=== PATIENT | female | born 1935 | race Caucasian/White ===

== ENCOUNTER 2021-08-18 19:43 | Inpatient (IN) | payer MEDICARE, SELFPAY ==
--- NOTE | ~2021-08-18 | XR_ITS ---
EXAMINATION: XR chest 1V portable Exam Date/Time: 08/18/2021 20:32 CDT HISTORY: fall x today, dementia, non smoker Comparison: 09/29/2016. RESULT: Lines, tubes, and devices: None. Lungs and pleura: Senescent changes. Cardiomediastinal silhouette: Stable cardiomediastinal silhouette. Other: No acute osseous or upper abdominal finding. IMPRESSION: No acute cardiopulmonary process. Reviewed, dictated and finalized at location K.
--- NOTE | ~2021-08-18 | XR_ITS ---
EXAMINATION: XR abdomen/kub 1V DATE: 08/27/2021 07:53 INDICATION: Abdominal pain. TECHNIQUE: A supine view of the abdomen was obtained. COMPARISON: Abdomen radiograph 08/22/21, CT abdomen and pelvis 07/10/2013 FINDINGS: There are no dilated loops of bowel. There is a large volume of stool in the colon. There i s a bipolar left hip hemiarthroplasty. IMPRESSION: 1. Nonobstructive bowel gas pattern. Reviewed, dictated and finalized at location A.
--- NOTE | ~2021-08-18 | XR_ITS ---
XR abdomen/kub 1V DATE: 08/22/2021 12:52 INDICATION: New onset of vomiting TECHNIQUE: Portable supine AP view on 08/22/2021 at 1243 hours COMPARISON: 07/13/2013 portable abdomen FINDINGS: Moderately prominent amount fecal material in the rectosigmoid area. No bowel obstruction i s evident. The psoas shadows are intact. No visceromegaly is detected. Left hip replacement. Osteopenia. Mild scoliosis. Degenerative changes of the thoracic and lumbar spi ne. IMPRESSION: No evidence of bowel obstruction Reviewed, dictated and finalized at Location A. Reviewed, dictated and finalized at location A.
--- NOTE | ~2021-08-18 | XR_ITS ---
XR surgery orthopedic DATE: 08/19/2021 19:27 INDICATION: Intraoperative evaluation TECHNIQUE: 2 AP views of left hip COMPARISON: None FINDINGS: There is expected subcutaneous emphysema intraoperatively. There is resection of the left f emoral neck and head. The trocar in the proximal left femur. Diffuse osteopenia. IMPRESSION: Intraoperative examination during process of the left hip replacement Reviewed, dictated and finalized at Location A. Reviewed, dictated and finalized at location A. IMPRESSION: Intraoperative examination during process of the left hip replaceme nt
--- NOTE | ~2021-08-18 | XR_ITS ---
EXAM: XR ankle LT min 3V DATE: 08/18/2021 20:29 HISTORY: fall, pain to left ankle . COMPARISON: None available. FINDINGS: Some osseous detail is obscured by overlying cloth/blanket material laterally. Decreased m ineralization. No fracture or dislocation. No lytic or blastic lesion. Joint spaces are maintained. A chilles and plantar into separately. No erosion or periosteal change. Soft tissues within normal limi ts. IMPRESSION: No acute osseous finding in the left ankle. Reviewed, dictated and finalized at location K.
--- NOTE | ~2021-08-18 | XR_ITS ---
EXAMINATION: XR chest 1V portable DATE: 08/27/2021 07:53 INDICATION: Atelectasis. TECHNIQUE: A single frontal view of the chest was obtained. COMPARISON: Chest single view 08/22/2021 FINDINGS: There is no pneumonia, pleural effusion, or pneumothorax. The heart size is normal. IMPRESSION: 1. No acute cardiopulmonary disease. Reviewed, dictated and finalized at location A.
--- NOTE | ~2021-08-18 | XR_ITS ---
XR hip LT min 2V DATE: 08/19/2021 19:27 INDICATION: Left bipolar hip replacement TECHNIQUE: AP and crosstable lateral views of left hip COMPARISON: None FINDINGS: Status post left femoral head and neck resection and placement of bipolar hip prosthesis wh ich appears normally positioned in the acetabulum. There is expected postoperative subcutaneous emphysema of the left hip and thigh. Surgical drain is p resent at the lateral aspect of the left hip. Diffuse osteopenia. IMPRESSION: Resection of left femoral head and neck and bipolar hip replacement Reviewed, dictated and finalized at location A.
--- NOTE | ~2021-08-18 | CT_ITS ---
EXAMINATION: CT brain wo con DATE: 08/18/2021 20:31 INDICATION: fall . TECHNIQUE: Computed tomography (CT) of the head was performed without intravenous contrast. The mA wa s adjusted according to patient size. Iterative reconstruction technique was employed. The dose-lengt h product was 605.33 mGy-cm. COMPARISON: 02/17/2014. FINDINGS: No acute intracranial hemorrhage or extra-axial fluid collection. No hydrocephalus, mass, or herniation. No acute ischemic infarct. Unremarkable dural venous sinus attenuation. No acute osseous abnormality. Mild left frontal soft tissue swelling. Left sphenoid air-fluid level, otherwise the aerated spaces are clear. Moderate atrophy. Severe chronic white matter change. Atherosclerotic intracranial calcifications. Bi lateral lens replacements. IMPRESSION: No acute intracranial process. Possible left sphenoid sinusitis. Reviewed, dictated and finalized at location K.
--- NOTE | ~2021-08-18 | XR_ITS ---
EXAM: XR hip LT min 3V w AP pelvis DATE: 08/18/2021 20:33 HISTORY: fall x today, pain to left hip . COMPARISON: None available. FINDINGS: Decreased mineralization. Left femoral neck fracture with minimal superior displacement. N o lytic or blastic lesion. Degenerative changes in the lumbar spine, pubic symphysis, and bilateral h ips. No erosion or periosteal change. Soft tissues within normal limits. IMPRESSION: Minimally displaced left femoral neck fracture. Reviewed, dictated and finalized at location K.
--- NOTE | ~2021-08-18 | XR_ITS ---
XR chest 1V portable DATE: 08/22/2021 02:10 INDICATION: Possible aspiration TECHNIQUE: Portable upright AP chest on 08/22/2021 at 0204 hours COMPARISON: 08/18/2021 portable AP views at 2032 hours FINDINGS: Mild infiltrate or atelectasis in the lower lung zones. No pleural effusion or pulmonary va scular congestion or pneumothorax. Heart size is within normal limits. Osteopenia. Osteoarthritic change at the glenohumeral joints. IMPRESSION: Mild infiltrate or atelectasis at the lung bases Reviewed, dictated and finalized at location A.
--- NOTE | ~2021-08-18 | CT_ITS ---
EXAMINATION: CT cervical spine wo con DATE: 08/18/2021 20:31 INDICATION: fall TECHNIQUE: Computed tomography (CT) of the cervical spine was performed without intravenous contrast. Automated exposure control and iterative reconstruction technique were employed. The dose-length pro duct was 189.41 mGy-cm. COMPARISON: None FINDINGS: Vertebral Body Alignment: Intact. 2 mm anterolisthesis of C3 on C4. 1 mm retrolisthesis of C4 on C5. Craniocervical and atlantoaxial alignment: Moderate degenerative change with extensive pannus formati on. Alignment intact. Osseous structures/fracture: No evidence of a lytic or blastic process in the visualized spine. No e vidence of acute fracture. Cervical soft tissues: The paraspinal soft tissues planes are maintained. Degenerative changes: Multilevel severe degenerative disc disease in the lower lumbar spine. Multilev el severe bilateral neural foraminal narrowing. Severe central canal narrowing at C6-7. IMPRESSION: No acute fracture or traumatic malalignment in the cervical spine. Reviewed, dictated and finalized at location K.
[2021-08-18 19:45] VITALS: BP 145/71; PULSE 58; RESP 18; TEMP 37; O2SAT 94
--- NOTE | 2021-08-18 20:09 | ED.FALL ---
HPI - Fall General Chief Complaint: Fall Stated Complaint: left groin pain s/p fall Time Seen by Provider: 08/18/21 19:46 History of Present Illness HPI Narrative: 85-year-old female presents after [facility] at [facility], she had come in her left foot tingled up and lost her balance and fell, she was caught by the aide and lowered to the floor, and had no trauma to her head or neck or chest, she is endorsing some pain in her left ankle and left hip. Denies any chest pain, difficulty breathing, loss of consciousness, nausea or vomiting. Related Data Allergies Allergy/AdvReac Type Severity Reaction Status Date / Time morphine AdvReac Unknown agressive Verified 05/13/21 10:57 Review of Systems Review of Systems: CONST: No malaise HEENT: Denies head trauma C/V: No chest pain RESP: No difficulty breathing GI: No abdominal pain BACK: No back pain M/S: Left hip pain SKIN: No rash. NEURO: [No headache or focal numbness or weakness] PSYCH: [No depression] [facility] Past Medical History Medical History (Updated 08/18/21 @ 21:42 by Juliet Flores MD) Hypercalcemia Wellness examination Family History Family History Father Family history of lung cancer Sibling Hypertension Family history of malignant melanoma Mother Family history of malignant neoplasm of stomach Social History Social History Smoking status: Never smoker Second hand tobacco smoke exposure: No Alcohol intake: never Substance use: never Substance use type: does not use Additional living arrangements comments: alf Gender identity (if verbalized by the patient): Female Sexual Orientation (if Verbalized by the Patient): Straight or Heterosexual Exam Narrative: EXAMINATION OF ORGAN SYSTEMS/BODY AREAS: Constitutional: Vital signs per nursing GENERAL:[No acute distress, non-toxic appearing.] HEAD: Normal with no signs of head trauma. EYES: EOMI, conjunctiva normal LUNGS: Nonlabored breathing. HEART: [Regular rate and rhythm], no chest wall tenderness ABD: [Soft], [nontender to palpation] EXT: Tenderness palpation of the left hip, left ankle; neurovascularly intact SKIN: [No rashes or lesions.] NEURO: [Alert. No gross focal sensory deficits.] PSYCH: Normal affect Course Vital Signs Vital signs: Vital Signs Temperature 98.6 F 08/18/21 19:45 Pulse Rate 58 L 08/18/21 19:45 Respiratory Rate 18 08/18/21 19:45 Blood Pressure 145/71 H 08/18/21 19:45 Pulse Oximetry 94 08/18/21 19:45 Oxygen Delivery Room Air 08/18/21 19:45 Temperature 98.6 F 08/18/21 19:45 Pulse Rate 62 08/18/21 21:24 Respiratory Rate 18 08/18/21 21:24 Blood Pressure 109/91 H 08/18/21 21:24 Pulse Oximetry 97 08/18/21 21:24 Oxygen Delivery Room Air 08/18/21 19:45 MDM - Fall MDM Narrative Medical decision making narrative: 85-year-old female presenting with fall and left hip pain, vital stable, exam shows tenderness of the left ankle and hip and no pain anywhere else, she is neurovascularly intact, given her age I will obtain scans of her head, C-spine, chest, pelvis, and ankle on the left. This is notable for left femoral neck fracture, case discussed with orthopedics who requested admission to the hospitalist, case discussed with hospitalist who accepted patient. Findings discussed with patient and her daughter. Lab Data Result diagrams: 08/18/21 20:51 08/18/21 21:22 Labs: Lab Results 08/18/21 08/18/21 08/18/21 Range/Units 20:51 20:51 20:51 WBC 6.5 (4.5-10.0) K/mm3 RBC 3.44 L (4.2-5.4) M/mm3 Hgb 11.2 L (12.0-15.0) g/dL Hct 34.9 L (37.0-47.0) % MCV 101.5 H (80-100) fl MCH 32.6 (26-34) pg MCHC 32.1 (32-36) g/dl RDW 14.0 (11.5-14.5) % Plt Count 240 (150-375) k/mm3 MPV 9.5 (7.4-10.4) fl Immature Gran % (Auto) 0.5 (0-0.5) % Neut %
[2021-08-18 20:36] VITALS: BP 162/75; PULSE 62; RESP 18; O2SAT 98
--- NOTE | 2021-08-18 20:42 | ECG_ITS ---
Measurements Intervals [place] Rate: 55 P: 82 IN: 211 QRS: 61 QRSD: 97 T: 49 QT: 431 QTc: 413 Interpretive Statements SINUS BRADYCARDIA WITH FIRST DEGREE AV BLOCK NO PREVIOUS ECG AVAILABLE FOR COMPARISON Electronically Signed On 08-19-2021 11:14:43 CDT by Anam Rodgers MD
[2021-08-18 20:58] LABS: Basophils Absolute Auto 0.1 K/mm3 (0.0-0.1); Basophils Percent Auto 0.8 % (0.2-1.2); Eosinophils Absolute Auto 0.1 K/mm3 (0-0.3); Eosinophils Percent Auto 1.7 % (0-4.4); Hematocrit 34.9 % (37.0-47.0); Hemoglobin 11.2 g/dL (12.0-15.0); Immature Granulocyte Absolute 0.03 K/mm3 (0.00-0.031); Immature Granulocyte Percent A 0.5 % (0-0.5); Lymphocytes Absolute Auto 1.32 K/mm3 (0.9-3.2); Lymphocytes Percent Auto 20.4 % (18.3-44.2); Mean Corpuscular HGB Conc 32.1 g/dl (32-36); Mean Corpuscular Hemoglobin 32.6 pg (26-34); Mean Corpuscular Volume 101.5 fl (80-100); Mean Platelet Volume 9.5 fl (7.4-10.4); Monocytes Absolute Auto 0.7 K/mm3 (0.1-0.6); Monocytes Percent Auto 10.2 % (2.6-8.5); Neutrophils Absolute Auto 4.3 K/mm3 (1.3-6.7); Neutrophils Percent Auto 66.4 % (45.5-73.1); Platelet Count Result 240 k/mm3 (150-375); Red Blood Count 3.44 M/mm3 (4.2-5.4); White Blood Count 6.5 K/mm3 (4.5-10.0)
[2021-08-18 21:08] LABS: INR 1.1; Prothrombin Time 13.7 Seconds (11.1-14.7)
[2021-08-18 21:09] LABS: Partial Thromboplastin Time 30.3 SECONDS (22.3-36.8)
--- NOTE | 2021-08-18 21:13 | PM.IMHP ---
H&P: HPI History of Present Illness Date/Time: 08/18/21 21:13 Chief Complaint: Fall Narrative: This is an 85-year-old female with past medical history significant for hypertension, diastolic heart failure, GERD, Alzheimer's dementia, dyslipidemia, patient resides at assisted living facility memory care unit. She was brought to the emergency room for evaluation after she suffered a mechanical fall. Patient is unable to give any history due to her advanced dementia she is oriented times once. Preliminary workup was significant for left femur fracture. Patient is been admitted for further evaluation, management and treatment. Review of Systems Review of Systems: ROS unobtainable: Yes unobtainable due to mental status (Alzheimer's dementia) COUNT INCLUDES THE [facility] Past Medical History Medical History (Updated 08/18/21 @ 21:42 by Juliet Flores MD) Hypercalcemia Wellness examination Family History Family History Father Family history of lung cancer Sibling Hypertension Family history of malignant melanoma Mother Family history of malignant neoplasm of stomach Social History Social History Smoking status: Never smoker Second hand tobacco smoke exposure: No Alcohol intake: never Substance use: never Substance use type: does not use Additional living arrangements comments: nursing home Gender identity (if verbalized by the patient): Female Sexual Orientation (if Verbalized by the Patient): Straight or Heterosexual Spiritual care concerns: No Meds Home Medications and Allergies Home Medications Medication Instructions Recorded Confirmed Type aspirin 81 mg tablet,delayed 81 mg PO DAILY #90 tabs 05/13/21 08/18/21 Rx release famotidine 20 mg tablet 20 mg PO BID #180 tabs 05/13/21 08/18/21 Rx lisinopril 20 mg tablet 20 mg PO DAILY #90 tabs 05/13/21 08/18/21 Rx loratadine 10 mg tablet (Claritin) 10 mg PO DAILY PRN allergy 05/13/21 08/18/21 Rx symptoms #30 tabs memantine 28 mg capsule 28 mg PO DAILY #90 ea 05/13/21 08/18/21 Rx sprinkle,extended release 24hr rosuvastatin 10 mg tablet 10 mg PO DAILY #90 tabs 05/13/21 08/18/21 Rx citalopram 10 mg tablet 10 mg PO QHS #90 tabs 07/29/21 08/18/21 Rx acetaminophen 500 mg tablet 1,000 mg PO Q6H PRN Pain (Scale 08/18/21 08/18/21 History Score 1-3) rivastigmine tartrate 3 mg capsule 3 mg PO BID 08/18/21 08/18/21 History Allergies Allergy/AdvReac Type Severity Reaction Status Date / Time morphine AdvReac Unknown agressive Verified 05/13/21 10:57 Vital Signs Vital Signs - 24 hr 08/18/21 19:45 08/18/21 20:36 Temperature 98.6 F Pulse Rate 58 L 62 Respiratory Rate 18 18 Blood Pressure 145/71 H 162/75 H Pulse Oximetry 94 98 Oxygen Delivery Room Air Exam Narrative: Patient is laying in a stretcher Const: General: comfortable, no acute distress, well developed, alert and awake Nutritional Appearance: average body habitus Orientation/consciousness: oriented to person HENMT: Head: normal to inspection, normocephalic and atraumatic Ears: hearing grossly impaired bilaterally Face and sinus: normal facial exam Eyes: General: appearance normal, both eyes and all related structures Alignment and Position: alignment normal Pupils: Equal, round and reactive pupils present EOM: EOMs intact bilaterally Neck: Neck: full ROM, no lymphadenopathy and no JVD Thyroid: thyroid normal Lymphatic: no lymphadenopathy noted Resp: Effort & Inspection: normal respiratory effort and able to speak in complete sentences Auscultation: clear to auscultation bilaterally Cardio: Jugular venous distension: no JVD Rate: regular rate Rhythm: regular rhythm Heart sounds: S1 normal heart sound present and S2 normal heart sound present GI: GI Palp: Yes Soft to palpation and Yes No hepatosplenomegaly present : General: Yes deferred Skin: Rashes: no rashes Wounds:
[2021-08-18 21:24] VITALS: BP 109/91; PULSE 62; RESP 18; O2SAT 97
[2021-08-18 21:48] LABS: Alanine Aminotransferase 19 U/L (6-35); Albumin Level 4.3 g/dL (3.5-5.1); Alkaline Phosphatase 52 U/L (38-126); Anion Gap 4 mmol/L (8-16); Aspartate Amino Transferase 33 U/L (14-36); Bilirubin,Total 0.5 mg/dL (0.2-1.3); Blood Urea Nitrogen 23 mg/dL (7-17); Calcium 9.6 mg/dL (8.4-10.2); Carbon Dioxide 26 mmol/L (22-30); Chloride 104 mmol/L (98-107); Estimated CRCL calculation 40 ml/min; Estimated Glomerular Filt Rate 59; Glucose 105 mg/dL (65-110); Potassium 4.4 mmol/L (3.4-5.0); Sodium 134 mmol/L (137-145)
--- NOTE | 2021-08-18 22:35 | ADMGEN ---
This patient, Elise Cash, was admitted to Medical Room 245-. Patient/family oriented to hospital policies and general routines including ID bracelet, bed and alarms, visiting hours, pain management, procedures, bathroom and other care routines, personal items, smoking policy, room service/diet, and visiting hours. Information on how to activate the Rapid Response Team has been discussed. Patient/Family are encouraged to report perceived risks to care and to ask questions if they do not understand what they are told or what they should do.
[2021-08-18 22:53] VITALS: BP 109/86; PULSE 62; RESP 18; O2SAT 95
[2021-08-18 23:08] VITALS: BP 185/90; PULSE 68; RESP 18; TEMP 37.1; O2SAT 97; BMI 25.7
[2021-08-18] MEDS: HYDROmorphone HCL INJ (*CRX) 1 MG/ML SYR IV PUSH (23:30)
[2021-08-18] MEDS: HALOPERIDOL LACTATE 5 MG/ML VIAL IM (23:34)
[2021-08-18 23:56] VITALS: BMI 25.7
[2021-08-19] VITALS (11 sets, daily range): BP systolic 148–190; BP diastolic 60–114; PULSE 70–103; RESP 12–22; TEMP 35.9–37.7; O2SAT 90–100
[2021-08-19] MEDS: HYDROmorphone HCL INJ (*CRX) 1 MG/ML SYR 0.5 MG IV PUSH ×2 (07:29→11:02)
--- NOTE | 2021-08-19 07:30 | PM.CNOR ---
Assessment and Plan Assessment and plan (1) Closed fracture of neck of left femur: Code(s): S72.002A - Fracture of unspecified part of neck of left femur, initial encounter for closed fracture Status: Acute Assessment and Plan: patient is a an 85-year-old female who reportedly twisted on her left leg sustaining a displaced left femoral neck fracture last evening. She was brought to the [facility] Emergency Room where she was noted to have a displaced left femoral neck fracture. She resides at the [facility] care unit in [facility]. She was living at home independently until 2013 and her dementia became severe enough that she required chronic inpatient care. Her daughter was present could be a history. Her past medical history is significant for bleeding ulcer in 2013 approximally she had severe delirium associated with recovery from that. She normally ambulates without any gait aid. She has no history of heart or lung disease. She was admitted with anemia which is likely chronic and not related to the fracture. We will check another CBC this morning. She has mild elevation of BUN 23 creatinine 0.9 creatinine clearance 40 GFR 59. The remainder of her Chem panel is unremarkable except for mild decrease in sodium at 1:34 a.m.. Her list of medications is reviewed. She does take a baby aspirin daily and Pepcid twice daily chronically, citalopram, lisinopril, loratadine, memantine and rosuvastatin. Dr. Burris is her primary care physician. on examination today she is in moderate distress crying out pain. She periodically tries to move her left leg at the hip and seems be the cause of her episodes of severe pain causing her to cry out. I tried to position the leg with a pillow under the knee for some support. She has 2+ dorsalis pedis and posterior tibial artery pulses. There is no lower extremity edema the skin looks fine. She is hard of hearing but her daughter was able to communicate with her little bit with her hearing aids. She does respond in answered yes or no appropriately to her daughter but it is clear that she does have advanced dementia and and inability to process instruction or information. Impression: Patient has a displaced left transcervical femoral neck fracture. I have discussed options with her daughter. her daughter does not wish to treat her mother with non operative treatment as she would have no quality of life. the best Surgical treatment would be a partial hip replacement. Unless her bone quality seemed excellent, a cemented stem would be recommended as she will not have the cognitive situational awareness to be protected weight-bearing with a Press-Fit ingrowth type stem. I have discussed risks of surgery with her daughter, who is her power of county attorney, in detail including risk of mortality and she understands. Her daughter was x-ray and security installation sales technician for 40 years she is very aware of this type of procedure we have discussed. We will proceed this afternoon when the OR is available. History of Present Illness HPI Consult date: 08/19/21 Chief complaint: hip fx PMFSH Past Medical History Medical History (Updated 08/18/21 @ 21:42 by Juliet Flores MD) Hypercalcemia Wellness examination Family History Family History Father Family history of lung cancer Sibling Hypertension Family history of malignant melanoma Mother Family history of malignant neoplasm of stomach Social History Social History Smoking status: Never smoker Second hand tobacco smoke exposure: No Alcohol intake: never Substance use: never Substance use type: does not use Additional living arrangements comments: skilled nursing Gender identity (if verbalized by the patient): Female Sexual Orientation (if Verbalized by the Patient): Straight or Heterosexual Spiritual care concerns: No Meds Home Medi
[2021-08-19 07:51] LABS: Basophils Absolute Auto 0.1 K/mm3 (0.0-0.1); Basophils Percent Auto 0.5 % (0.2-1.2); Eosinophils Absolute Auto 0.1 K/mm3 (0-0.3); Eosinophils Percent Auto 0.5 % (0-4.4); Hematocrit 34.8 % (37.0-47.0); Hemoglobin 11.3 g/dL (12.0-15.0); Immature Granulocyte Absolute 0.04 K/mm3 (0.00-0.031); Immature Granulocyte Percent A 0.4 % (0-0.5); Lymphocytes Absolute Auto 1.42 K/mm3 (0.9-3.2); Lymphocytes Percent Auto 12.9 % (18.3-44.2); Mean Corpuscular HGB Conc 32.5 g/dl (32-36); Mean Corpuscular Hemoglobin 32.9 pg (26-34); Mean Corpuscular Volume 101.5 fl (80-100); Mean Platelet Volume 9.3 fl (7.4-10.4); Monocytes Absolute Auto 0.8 K/mm3 (0.1-0.6); Monocytes Percent Auto 7.2 % (2.6-8.5); Neutrophils Absolute Auto 8.7 K/mm3 (1.3-6.7); Neutrophils Percent Auto 78.5 % (45.5-73.1); Platelet Count Result 222 k/mm3 (150-375); Red Blood Count 3.43 M/mm3 (4.2-5.4)
[2021-08-19] MEDS: MEMANTINE HCL XR 28 MG CAP PO (09:09)
[2021-08-19] MEDS: RIVASTIGMINE TARTRATE 1.5 MG CAPSULE 3 MG PO ×2 (09:09→22:42)
--- NOTE | 2021-08-19 11:51 | PM.IMPN ---
Progress Note: A&P Assessment and Plan (1) Closed fracture of neck of left femur: Code(s): S72.002A - Fracture of unspecified part of neck of left femur, initial encounter for closed fracture Status: Acute Assessment and Plan: Bed rest Admit to regular medical floor Fall precautions Pain management Supportive care Ortho consult (2) : Code(s): F05 - Delirium due to known physiological condition Status: Acute Assessment and Plan: Haldol p.r.n. (3) Chronic GERD: Code(s): K21.9 - Gastro-esophageal reflux disease without esophagitis Status: Acute Assessment and Plan: PPI (4) Dementia, unspecified, without behavioral disturbance: Code(s): F03.90 - Unspecified dementia without behavioral disturbance Status: Acute Assessment and Plan: Continue memantine Continue rivastigmine (5) Diastolic dysfunction: Code(s): I51.89 - Other ill-defined heart diseases Status: Acute Assessment and Plan: Appears to be compensated (6) Hyperlipidemia: Code(s): E78.5 - Hyperlipidemia, unspecified Status: Acute Assessment and Plan: Continue statin Follow-up in the outpatient setting (7) Sensorineural hearing loss (SNHL), bilateral: Code(s): H90.3 - Sensorineural hearing loss, bilateral Status: Acute Assessment and Plan: Unchanged (8) Valvular heart disease: Code(s): I38 - Endocarditis, valve unspecified Status: Acute Assessment and Plan: Unchanged Subjective Date/time seen: 08/19/21 11:51 No new complaint Exam Narrative: Patient is laying in a stretcher Const: General: comfortable, no acute distress, well developed, alert and awake Nutritional Appearance: average body habitus Orientation/consciousness: oriented to person HENMT: Head: normal to inspection, normocephalic and atraumatic Ears: hearing grossly impaired bilaterally Face and sinus: normal facial exam Eyes: General: appearance normal, both eyes and all related structures Alignment and Position: alignment normal Pupils: Equal, round and reactive pupils present EOM: EOMs intact bilaterally Neck: Neck: full ROM, no lymphadenopathy and no JVD Thyroid: thyroid normal Lymphatic: no lymphadenopathy noted Resp: Effort & Inspection: normal respiratory effort and able to speak in complete sentences Auscultation: clear to auscultation bilaterally Cardio: Jugular venous distension: no JVD Rate: regular rate Rhythm: regular rhythm Heart sounds: S1 normal heart sound present and S2 normal heart sound present : General: Yes deferred Skin: Rashes: no rashes Wounds: no wounds Neuro: General: oriented to person, Unable to assess gait and other (Sensorineural hearing loss) Cranial nerves: Yes CN's II-XII intact bilaterally and Yes Equal, round and reactive pupils present Cognition (Neuro): abnormal cognition (Alzheimer's dementia) Speech: normal speech Gait exam (Neuro): Unable to assess gait Motor exam (neuro): 5/5 motor strength present throughout Extrem: General: other (Left lower extremity is shortened and externally rotated) Psych: Appearance: grossly normal Mental Status: other (Behavioral manifestations) Objective Data Vital Signs Vital Signs: Vital Signs - 24 hr 08/18/21 19:45 08/18/21 20:36 08/18/21 21:24 Temperature 98.6 F Pulse Rate 58 L 62 62 Respiratory Rate 18 18 18 Blood Pressure 145/71 H 162/75 H 109/91 H Pulse Oximetry 94 98 97 Oxygen Delivery Room Air 08/18/21 22:53 08/18/21 23:08 08/19/21 08:00 Temperature 98.8 F Pulse Rate 62 68 Respiratory Rate 18 18 18 Blood Pressure 109/86 185/90 H Pulse Oximetry 95 97 97 Oxygen Delivery Room Air Intake/Output Intake/Output: Intake & Output 08/16/21 08/17/21 08/18/21 08/19/21 23:59 23:59 23:59 23:59 Intake Total 100 Output Total 800 Balance 100 -800 Meds/Results Medications: Active Medications
[2021-08-19] MEDS: LACTATED RINGERS 1,000 ML 30 ML IV CONT ×2 (15:15→19:20)
--- NOTE | 2021-08-19 15:17 | PC.NURSE ---
Report given to [facility] RN preop nurse. To OR via bed. Daughter at bedside.
[2021-08-19] MEDS: TRANEXAMIC ACID 1,000MG/ISO100 1,000 MG/100 ML BAG 200 MG IVPB (15:34)
--- NOTE | 2021-08-19 15:41 | WPDANESEPPF ---
Anes - Initial Pre Proc Eval Procedure: Operation Date: 08/19/21 17:30 Proposed Procedures p Left Bipolar - Elkin Best MD Date/Time: 08/19/21 15:41 Surgeon: Rosalina Hunter MD Pre Op Diagnosis: hip fx Patient Data Age: 85 Gender: F Height: 1.65 m Weight: 70 kg Last Vital Signs Temp 36.9 C 08/19/21 14:04 Pulse 70 08/19/21 14:04 Resp 16 08/19/21 14:04 BP 148/65 H 08/19/21 14:04 Pulse Ox 93 08/19/21 14:04 O2 Del Method Room Air 08/19/21 08:00 Allergies Allergy/AdvReac Type Severity Reaction Status Date / Time morphine AdvReac Unknown agressive Verified 08/19/21 15:36 Home Medications Medication Instructions Recorded Confirmed Type aspirin 81 mg tablet,delayed 81 mg PO DAILY #90 tabs 05/13/21 08/18/21 Rx release famotidine 20 mg tablet 20 mg PO BID #180 tabs 05/13/21 08/18/21 Rx lisinopril 20 mg tablet 20 mg PO DAILY #90 tabs 05/13/21 08/18/21 Rx loratadine 10 mg tablet (Claritin) 10 mg PO DAILY PRN allergy 05/13/21 08/18/21 Rx symptoms #30 tabs memantine 28 mg capsule 28 mg PO DAILY #90 ea 05/13/21 08/18/21 Rx sprinkle,extended release 24hr rosuvastatin 10 mg tablet 10 mg PO DAILY #90 tabs 05/13/21 08/18/21 Rx citalopram 10 mg tablet 10 mg PO QHS #90 tabs 07/29/21 08/18/21 Rx acetaminophen 500 mg tablet 1,000 mg PO Q6H PRN Pain (Scale 08/18/21 08/18/21 History Score 1-3) rivastigmine tartrate 3 mg capsule 3 mg PO BID 08/18/21 08/18/21 History Laboratory Tests 08/18/21 08/18/21 08/18/21 20:51 20:51 20:51 WBC 6.5 K/mm3 K/mm3 (4.5-10.0) RBC 3.44 M/mm3 L M/mm3 (4.2-5.4) Hgb 11.2 g/dL L g/dL (12.0-15.0) Hct 34.9 % L % (37.0-47.0) MCV 101.5 fl H fl (80-100) MCH 32.6 pg pg (26-34) MCHC 32.1 g/dl g/dl (32-36) RDW 14.0 % % (11.5-14.5) Plt Count 240 k/mm3 k/mm3 (150-375) MPV 9.5 fl fl (7.4-10.4) Immature Gran % (Auto) 0.5 % % (0-0.5) Neut % (Auto) 66.4 % % (45.5-73.1) Lymph % (Auto) 20.4 % % (18.3-44.2) [place]yer % (Auto) 10.2 % H % (2.6-8.5) Eos % (Auto) 1.7 % % (0-4.4) Baso % (Auto) 0.8 % % (0.2-1.2) Lymph # (Auto) 1.32 K/mm3 K/mm3 (0.9-3.2) [place]yer # (Auto) 0.7 K/mm3 H K/mm3 (0.1-0.6) Eos # (Auto) 0.1 K/mm3 K/mm3 (0-0.3) Baso # (Auto) 0.1 K/mm3 K/mm3 (0.0-0.1) Abs Immat Gran (auto) 0.03 K/mm3 K/mm3 (0.00-0.031) Absolute Neuts (auto) 4.3 K/mm3 K/mm3 (1.3-6.7) Absolute Nucleated RBC 0.0 K/mm3 K/mm3 (0.0-0.012) Nucleated RBC % 0.0 % % (0.0-0.2) PT 13.7 Seconds Seconds (11.1-14.7) INR 1.1 APTT 30.3 SECONDS SECONDS (22.3-36.8) Sodium Potassium Chloride Carbon Dioxide Anion Gap BUN Creatinine Estim Creat Clear Calc Estimated GFR Glucose Calcium Total Bilirubin AST ALT Alkaline Phosphatase Total Protein Albumin Blood Type A Positive Antibody Screen Negative 08/18/21 08/19/21 21:22 07:43 WBC 11.0 K/mm3 H K/mm3 (4.5-10.0) RBC 3.43 M/mm3 L M/mm3 (4.2-5.4) Hgb 11.3 g/dL L g/dL (12.0-15.0) Hct 34.8 % L % (37.0-47.0) MCV 101.5 fl H fl (80-100) MCH 32.9 pg pg (26-34) MCHC 32.5 g/dl g/dl (32-36) RDW 14.0 % % (11.5-14.5) Plt Count 222 k/mm3 k/mm3 (150-375) MPV 9.3 fl fl (7.4-10.4) Immature Gran % (Auto) 0.4 % % (0-0.5) Neut % (Auto) 78.5 % H % (45.5-73.1) Lymph % (Auto) 12.9 % L % (18.3-44.2) [place]yer % (Auto) 7.2 % % (2.6-8.5) Eos % (Auto) 0.5 % % (0-4.4) Baso % (Auto) 0.5 % % (0.2-1
--- NOTE | 2021-08-19 15:59 | WPDHPUPDATE1 ---
History and Physical Update Update Date/Time: 08/19/21 15:59 History and Physical has been reviewed, including an updated exam of the patient. There are NO changes in the patient's condition.Hb stable this am 11.3. Risks, benefits, and alternatives have been discussed and questions answered. Patient agrees to proceed with procedure.
[2021-08-19] MEDS: ceFAZolin 2 GM/D5W 50 ML 2 GM/50 ML BAG IVPB (16:21)
--- NOTE | 2021-08-19 19:12 | W.PM.PROC2 ---
Procedure Note - Detailed Date of Procedure 08/19/21 Pre-op Diagnosis Displaced transcervical left femoral neck fracture Post-op Diagnosis Same Procedure Performed Cemented bipolar hemiarthroplasty left hip Surgeon Elkin Best MD F[employer] Supervisor hiro Description of Procedure Patient was brought to the operating room and general anesthesia was administered. Left hip was carefully scrubbed with a chlorhexidine cloth. She received 2 g of Ancef weight based vancomycin 1 g of tranexamic acid preoperatively. General anesthesia was administered she was placed in lateral decubitus position left hip prepped draped usual fashion. A 6 in longitudinal incision was made over the lateral aspect of the hip in the fascia sarah split in line with the incision. The anterior 40% gluteus medius and gluteus minimus were elevated off the greater trochanter the capsule was incised. The femoral head was removed. It measured 44.5 mm in thickness in the 45 mm head sat well. The 46 sat proud. Labrum was severely macerated with chondrocalcinosis and was debrided to the extent that we would prevent entrapment of labral tissue during reduction. The articular cartilage of the femoral head and the acetabulum were otherwise normal. The femur was broached to a size 3. An intraoperative x-ray was obtained after reduction with a size 1.5. She had a varus type femur alignment and we could see that the stem was still a little bit of varus and high We were able broach to a size 4 we countersunk this an additional 3 mm to 1 more intraoperative x-ray and stem alignment was normal we had a little bit of decreased offset and therefore we countersunk the broach in the 4 mm and calcar planed with a saw. The canal was thoroughly irrigated prepped with epinephrine-soaked sponges and dried. Two batches cement methylmethacrylate 1 containing gentamicin powder mixed injected in the canal pressurized and the size 4 standard offset cemented stem was inserted at proper anteversion and fully seated. Cement was allowed to harden. We trialed and the 1.5 now was excessively loose and the 5 mm length head trial had appropriate soft tissue tension and full range of motion and stability. The 5 mm 28 mm stainless steel head was assembled to the 45 mm bipolar head and impacted on the clean and dried trunnion after irrigation again with antibiotic solution hip was reduced stability reconfirmed. Capsule was repaired with 2. Ethibond, the minimus repaired the capsule with 2. Ethibond and abductors repaired with 5. Ethibond through bone and 2. Ethibond. Fascia was closed with 2. Vicryl then running 1. Unidirectional barbed Stratafix suture. Drain placed deep in the subcu skin closed with 2 subcutaneous Vicryl and glue EBL was 150 cc. 3rd g of Ancef was given time wound closure. No known complications. Implants Loved.la Estimated Blood Loss 150 Drains Yes Pathology Yes (Fem head) Condition Stable Disposition PACU
--- NOTE | 2021-08-19 20:24 | PC.NURSE ---
PT BACK FROM OR PER BED.
[2021-08-19] MEDS: SODIUM CHLORIDE 0.9% IV 1,000 ML 125 ML IV CONT (20:52)
[2021-08-19] MEDS: oxyCODONE HCL (*CRX) 2.5 MG TAB IR PO (21:40)
[2021-08-19] MEDS: CITALOPRAM HYDROBROMIDE 10 MG TABLET PO (22:42)
[2021-08-19] MEDS: FAMOTIDINE 20 MG TABLET PO (22:43)
[2021-08-19] MEDS: HALOPERIDOL LACTATE 5 MG/ML VIAL IM (22:58)
[2021-08-20] VITALS: PULSE 82
[2021-08-20] MEDS: oxyCODONE HCL (*CRX) 2.5 MG TAB IR PO ×3 (01:45→17:04)
[2021-08-20 02:00] VITALS: BP 163/60; PULSE 95; RESP 22; TEMP 36.8; O2SAT 91
--- NOTE | 2021-08-20 03:51 | PC.NURSE ---
COMPUTER DOWN TIME FROM 1-4AM
--- NOTE | 2021-08-20 04:13 | PC.NURSE ---
0400 PT HAD PULLED VU AND DRAIN OUT AND REFUSES TO KEEP TELEMETRY ON. BECOMES COMBATIVE WHEN APPROACHED
[2021-08-20 04:33] VITALS: BP 137/59; PULSE 82; RESP 20; TEMP 36.9; O2SAT 92
[2021-08-20 05:51] LABS: Basophils Percent Auto 0.1 % (0.2-1.2); Hematocrit 31.5 % (37.0-47.0); Hemoglobin 10.3 g/dL (12.0-15.0); Immature Granulocyte Absolute 0.09 K/mm3 (0.00-0.031); Immature Granulocyte Percent A 0.6 % (0-0.5); Lymphocytes Absolute Auto 0.66 K/mm3 (0.9-3.2); Lymphocytes Percent Auto 4.4 % (18.3-44.2); Mean Corpuscular HGB Conc 32.7 g/dl (32-36); Mean Corpuscular Hemoglobin 32.6 pg (26-34); Mean Corpuscular Volume 99.7 fl (80-100); Mean Platelet Volume 9.9 fl (7.4-10.4); Monocytes Absolute Auto 1.3 K/mm3 (0.1-0.6); Monocytes Percent Auto 8.7 % (2.6-8.5); Neutrophils Absolute Auto 12.8 K/mm3 (1.3-6.7); Neutrophils Percent Auto 86.2 % (45.5-73.1); Platelet Count Result 225 k/mm3 (150-375); Red Blood Count 3.16 M/mm3 (4.2-5.4); Red Cell Distribution Width 13.8 % (11.5-14.5); White Blood Count 14.9 K/mm3 (4.5-10.0)
[2021-08-20 06:24] LABS: Anion Gap 7 mmol/L (8-16); Blood Urea Nitrogen 15 mg/dL (7-17); Calcium 8.8 mg/dL (8.4-10.2); Carbon Dioxide 27 mmol/L (22-30); Chloride 98 mmol/L (98-107); Estimated CRCL calculation 45 ml/min; Estimated Glomerular Filt Rate > 60; Glucose 131 mg/dL (65-110); Sodium 132 mmol/L (137-145)
[2021-08-20 06:53] LABS: Vitamin D 25 Hydroxy 40.5 ng/mL
--- NOTE | 2021-08-20 07:05 | PM.PNORT ---
Subjective Subjective Date/Time Seen: 08/20/21 07:05 postop day 1 patient is afebrile vital signs are stable. Morning Chem panel was all normal. CBC is still pending. Patient was very agitated overnight. She would not keep on her telemetry. She also pulled out her drain as well as her Hamilton overnight. Dressing is dry. Patient does not appear to be in pain. Her vitamin-D was 40.5, well within normal limits. The patient did have culture done from a vaginal discharge that is still pending. Physical therapy will try to work with patient to get her up to ambulate today. Objective Data Vital Signs Vital Signs: Vital Signs - 24 hr 08/19/21 08:00 08/19/21 14:04 08/19/21 15:15 Temperature 36.9 C 37.7 C H Pulse Rate 70 80 Respiratory Rate 18 16 16 Blood Pressure 148/65 H 162/73 H Pulse Oximetry 97 93 95 Oxygen Delivery Room Air Room Air Oxygen Flow Rate 08/19/21 19:20 08/19/21 19:35 08/19/21 19:50 Temperature 36.4 C L Pulse Rate 98 85 84 Respiratory Rate 22 H 12 14 Blood Pressure 148/114 H 190/78 H Pulse Oximetry 98 100 95 Oxygen Delivery Simple Face Mask Simple Face Mask Nasal Cannula Oxygen Flow Rate 10 10 2 08/19/21 20:07 08/19/21 20:15 08/19/21 20:30 Temperature 36.1 C L 36.1 C L Pulse Rate 78 88 88 Respiratory Rate 17 20 20 Blood Pressure 174/73 H 158/60 H 158/60 H Pulse Oximetry 94 92 92 Oxygen Delivery Room Air Oxygen Flow Rate 08/19/21 21:00 08/19/21 22:00 08/19/21 20:30 Temperature 35.9 C L 36.2 C L Pulse Rate 85 103 H 80 Respiratory Rate 18 20 Blood Pressure 189/74 H 167/70 H Pulse Oximetry 92 90 Oxygen Delivery Oxygen Flow Rate 08/20/21 00:00 08/20/21 02:00 08/20/21 04:33 Temperature 36.8 C 36.9 C Pulse Rate 82 95 82 Respiratory Rate 22 H 20 Blood Pressure 163/60 H 137/59 L Pulse Oximetry 91 92 Oxygen Delivery Oxygen Flow Rate Intake/Output Intake/Output: Intake & Output 06/14/22 08/18/21 08/19/21 08/20/21 23:59 23:59 23:59 23:59 Intake Total 775 847 4881 Output Total 910 Balance 100 -460 1989 Meds/Results Medications: Active Medications Generic Name Dose Route Start Last Admin Trade Name Freq PRN Reason Stop Dose Admin Apixaban 2.5 mg 08/20/21 09:00 Apixaban 2.5 Mg Tablet PO Q12HR LÓPEZ Aspirin 81 mg 08/19/21 09:00 08/19/21 08:07 Aspirin 81 Mg Enteric Tablet PO Not Given DAILY LÓPEZ Citalopram Hydrobromide 10 mg 08/19/21 21:00 08/19/21 22:42 Citalopram Hydrobromide 10 Mg Tablet PO 10 mg HS LÓPEZ Administration Famotidine 20 mg 08/19/21 21:00 08/19/21 22:43 Famotidine 20 Mg Tablet PO 20 mg Q12HR LÓPEZ Administration Hydroxyzine HCl 50 mg 08/19/21 20:15 Hydroxyzine Hcl 25 Mg Tablet PO Q4H PRN Itching Acetaminophen 1,000 mg in 100 mls @ 400 mls/hr 08/19/21 12:00 08/20/21 06:40 Ofirmev 1,000 Mg Ivpb IVPB 08/20/21 11:59 Infused Q6HR LÓPEZ Infusion Cefazolin Sodium 1 gm in 50 mls @ 100 mls/hr 08/20/21 00:00 08/20/21 00:15 Ancef 1 Gm/D5w 50 Ml Pm IVPB 08/20/21 16:29 Infused Q8H LÓPEZ Infusion Vancomycin HCl 1,000 mg in 250 mls @ 250 mls/hr 08/20/21 03:00 08/20/21 04:00 Vancomycin 1,000 Mg/D5w 250 Ml IVPB 08/20/21 15:59 Infused Q12H LÓPEZ Infusion Lisinopril 20 mg 08/19/21 09:00 08/19/21 09:11 Lisinopril 20 Mg Tablet PO Not Given DAILY LÓPEZ Loratadine 10 mg 08/19/21 03:27 Loratadine 10 Mg Tablet PO DAILY PRN allergy symptoms Memantine 28 mg 08/19/21 09:00 08/19/21 09:09 Memantine Hcl Xr 28 Mg Cap PO 28 mg DAILY LÓPEZ Administration Naloxone HCl 0.1 mg 08/19/21 20:15 Naloxone Hcl 0.4 Mg/Ml Vial IV PUSH Q2M PRN Opiate Reversal Ondansetron HCl 4 mg 08/19/21 20:15 Ondansetron Inj 4 Mg/2 Ml Vial IV PUSH Q4H PRN Nausea And Vomiting Oxycodone HCl 2.5 mg 08/19/21 21:00 08/20/21 06:25 Oxycodone Hcl (*Crx) 2.5 Mg Tab Ir PO 2.5 mg Q4HR LÓPEZ Administration Polyethy
--- NOTE | 2021-08-20 07:56 | P.PNAN_ITS ---
Anes - Prog Note Post-Op Date/Time: 08/20/21 07:56 Cardiovascular status: normal Respiratory status: normal Airway patency: baseline Mental status: baseline Post-Op hydration status: normal Vital Signs: Last Vital Signs Temp 36.9 C 08/20/21 04:33 Pulse 82 08/20/21 04:33 Resp 20 08/20/21 04:33 BP 137/59 L 08/20/21 04:33 Pulse Ox 92 08/20/21 04:33 O2 Del Method Room Air 08/19/21 20:07 O2 Flow Rate 2 08/19/21 19:50 Pain Score (VAS): pt is confused (baseline), unable to assess I/O: Intake & Output 08/19/21 08/19/21 08/20/21 15:59 23:59 07:59 Intake Total 200 254 4157 Output Total 600 110 Balance -000 628 5761 Laboratory Tests 08/20/21 05:03 08/20/21 05:03 08/19/21 08/20/21 08/20/21 07:43 05:03 05:03 WBC 11.0 H 14.9 H RBC 3.43 L 3.16 L Hgb 11.3 L 10.3 L Hct 34.8 L 31.5 L MCV 101.5 H 99.7 MCH 32.9 32.6 MCHC 32.5 32.7 RDW 14.0 13.8 Plt Count 222 225 MPV 9.3 9.9 Immature Gran % (Auto) 0.4 0.6 H Neut % (Auto) 78.5 H 86.2 H Lymph % (Auto) 12.9 L 4.4 L [place] % (Auto) 7.2 8.7 H Eos % (Auto) 0.5 0.0 Baso % (Auto) 0.5 0.1 L Lymph # (Auto) 1.42 0.66 L [place] # (Auto) 0.8 H 1.3 H Eos # (Auto) 0.1 0.0 Baso # (Auto) 0.1 0.0 Abs Immat Gran (auto) 0.04 H 0.09 H Absolute Neuts (auto) 8.7 H 12.8 H Absolute Nucleated RBC 0.0 0.0 Nucleated RBC % 0.0 0.0 Sodium 132 L Potassium 4.0 Chloride 98 Carbon Dioxide 27 Anion Gap 7 L BUN 15 D Creatinine 0.70 Estim Creat Clear Calc 45 Estimated GFR > 60 Glucose 131 H Calcium 8.8 Vitamin D 25-Hydroxy 08/20/21 05:03 WBC RBC Hgb Hct MCV MCH MCHC RDW Plt Count MPV Immature Gran % (Auto) Neut % (Auto) Lymph % (Auto) [place] % (Auto) Eos % (Auto) Baso % (Auto) Lymph # (Auto) [place] # (Auto) Eos # (Auto) Baso # (Auto) Abs Immat Gran (auto) Absolute Neuts (auto) Absolute Nucleated RBC Nucleated RBC % Sodium Potassium Chloride Carbon Dioxide Anion Gap BUN Creatinine Estim Creat Clear Calc Estimated GFR Glucose Calcium Vitamin D 25-Hydroxy 40.5 Post-procedural complaints: none Patient Feedback: Patient satisfied with anesthetic care.
[2021-08-20] MEDS: MEMANTINE HCL XR 28 MG CAP PO (09:11)
[2021-08-20] MEDS: APIXABAN 2.5 MG TABLET PO ×2 (09:11→20:02)
[2021-08-20] MEDS: SENNA/DOCUSATE SODIUM TABLET 2 TAB PO ×2 (09:11→17:02)
[2021-08-20] MEDS: RIVASTIGMINE TARTRATE 1.5 MG CAPSULE 3 MG PO ×2 (09:11→17:02)
[2021-08-20] MEDS: ASPIRIN 81 MG ENTERIC TABLET PO (09:11)
[2021-08-20] MEDS: lisinopriL 20 MG TABLET PO (09:11)
[2021-08-20] MEDS: ROSUVASTATIN 10 MG TABLET PO (09:11)
[2021-08-20] MEDS: FAMOTIDINE 20 MG TABLET PO ×2 (09:11→20:02)
[2021-08-20] MEDS: polyethylene glycoL 3350 17 GM POWD.PACK PO (09:12)
--- NOTE | 2021-08-20 10:44 | PM.IMPN ---
Progress Note: A&P Assessment and Plan (1) Closed fracture of neck of left femur: Code(s): S72.002A - Fracture of unspecified part of neck of left femur, initial encounter for closed fracture Status: Acute Assessment and Plan: Bed rest Admit to regular medical floor Fall precautions Pain management Supportive care Ortho consult (2) : Code(s): F05 - Delirium due to known physiological condition Status: Acute Assessment and Plan: Haldol p.r.n. (3) Chronic GERD: Code(s): K21.9 - Gastro-esophageal reflux disease without esophagitis Status: Acute Assessment and Plan: PPI (4) Dementia, unspecified, without behavioral disturbance: Code(s): F03.90 - Unspecified dementia without behavioral disturbance Status: Inactive Assessment and Plan: Continue memantine Continue rivastigmine (5) Diastolic dysfunction: Code(s): I51.89 - Other ill-defined heart diseases Status: Inactive Assessment and Plan: Appears to be compensated (6) Hyperlipidemia: Code(s): E78.5 - Hyperlipidemia, unspecified Status: Inactive Assessment and Plan: Continue statin Follow-up in the outpatient setting (7) Sensorineural hearing loss (SNHL), bilateral: Code(s): H90.3 - Sensorineural hearing loss, bilateral Status: Acute Assessment and Plan: Unchanged (8) Valvular heart disease: Code(s): I38 - Endocarditis, valve unspecified Status: Acute Assessment and Plan: Unchanged Subjective Date/time seen: 08/20/21 10:44 No new complaints Exam Narrative: Patient is laying in a stretcher Const: General: comfortable, no acute distress, well developed, alert and awake Nutritional Appearance: average body habitus Orientation/consciousness: oriented to person HENMT: Head: normal to inspection, normocephalic and atraumatic Ears: hearing grossly impaired bilaterally Face and sinus: normal facial exam Eyes: General: appearance normal, both eyes and all related structures Alignment and Position: alignment normal Pupils: Equal, round and reactive pupils present EOM: EOMs intact bilaterally Neck: Neck: full ROM, no lymphadenopathy and no JVD Thyroid: thyroid normal Lymphatic: no lymphadenopathy noted Resp: Effort & Inspection: normal respiratory effort and able to speak in complete sentences Auscultation: clear to auscultation bilaterally Cardio: Jugular venous distension: no JVD Rate: regular rate Rhythm: regular rhythm Heart sounds: S1 normal heart sound present and S2 normal heart sound present : General: Yes deferred Skin: Rashes: no rashes Wounds: no wounds Neuro: General: oriented to person, Unable to assess gait and other (Sensorineural hearing loss) Cranial nerves: Yes CN's II-XII intact bilaterally and Yes Equal, round and reactive pupils present Cognition (Neuro): abnormal cognition (Alzheimer's dementia) Speech: normal speech Gait exam (Neuro): Unable to assess gait Motor exam (neuro): 5/5 motor strength present throughout Extrem: General: other (Left lower extremity is shortened and externally rotated) Psych: Appearance: grossly normal Mental Status: other (Behavioral manifestations) Objective Data Vital Signs Vital Signs: Vital Signs - 24 hr 08/19/21 14:04 08/19/21 15:15 08/19/21 19:20 Temperature 98.4 F 99.9 F H 97.5 F L Pulse Rate 70 80 98 Respiratory Rate 16 16 22 H Blood Pressure 148/65 H 162/73 H Pulse Oximetry 93 95 98 Oxygen Delivery Room Air Simple Face Mask Oxygen Flow Rate 10 08/19/21 19:35 08/19/21 19:50 08/19/21 20:07 Temperature Pulse Rate 85 84 78 Respiratory Rate 12 14 17 Blood Pressure 148/114 H 190/78 H 174/73 H Pulse Oximetry 100 95 94 Oxygen Delivery Simple Face Mask Nasal Cannula Room Air Oxygen Flow Rate 10 2 08/19/21 20:15 08/19/21 20:30 08/19/21 21:00 Temperature 96.9 F L 96.9 F L 96.6 F L Pulse Rate 88 88 85
[2021-08-20 14:16] VITALS: BP 105/53; PULSE 83; RESP 22; TEMP 36.6; O2SAT 91
[2021-08-20 18:25] VITALS: BP 152/58; PULSE 82; RESP 16; TEMP 36.6; O2SAT 92
[2021-08-20 19:58] VITALS: BP 145/79; PULSE 90; RESP 18; TEMP 36.8; O2SAT 96
[2021-08-20] MEDS: CITALOPRAM HYDROBROMIDE 10 MG TABLET PO (20:02)
[2021-08-21 03:00] VITALS: BP 148/69; PULSE 90; RESP 18; TEMP 37; O2SAT 94
--- NOTE | 2021-08-21 08:12 | PM.PNORT ---
Progress Note: A&P Assessment and Plan (1) S/P hip replacement: Code(s): Z96.649 - Presence of unspecified artificial hip joint Status: Acute Assessment and Plan: Patient is postoperative day 2. After cemented bipolar hemiarthroplasty of the right hip. She is afebrile stable vital signs. Labs are stable this morning hemoglobin 10.3 mild acute blood loss anemia. She is on Eliquis for DVT prophylaxis and normally takes a baby aspirin daily. On exam she is smiling and polite this morning. When I walked in she was using a straw to try to eat her breakfast tray. I handed her the fork and she took it and thanked me. When asked if she had pain she repeated the question and stated she did not know. I asked if she needed anything and she said she did not think so. She is interacting fairly well. I am told that she was an assist of 1 or 2 using the Vivi steady yesterday. There is no swelling about the left hip of significance and the dressing pad on the left hip wound is dry without signs of blood on the dressing. Patient appears stable postoperatively. We are allowing her to be weight-bearing as tolerated as she has a cemented stem. She will be ready for transfer to rehab from an orthopedic standpoint whenever she is felt to be stable from a medical standpoint. I will add orders for her to be on Eliquis for 5 weeks for DVT prophylaxis. I am going to switch her from the IV Tylenol which has worked very well for her in controlling her pain, to oral Tylenol which hopefully will work as well. She seems to be getting by without use of narcotics fortunately as these tend to exacerbate her delirium and agitation. At transfer I would recommend just using Tylenol Subjective Subjective Date/Time Seen: 08/21/21 08:12 Objective Data Vital Signs Vital Signs: Vital Signs - 24 hr 08/20/21 08:19 08/20/21 08:20 08/20/21 14:16 Temperature 36.6 C Pulse Rate 83 Respiratory Rate 22 H Blood Pressure 105/53 L Pulse Oximetry 91 Oxygen Delivery Room Air Room Air 08/20/21 18:25 08/20/21 19:58 08/20/21 20:17 Temperature 36.6 C 36.8 C Pulse Rate 82 90 Respiratory Rate 16 18 Blood Pressure 152/58 H 145/79 H Pulse Oximetry 92 96 Oxygen Delivery Room Air 08/21/21 03:00 Temperature 37.0 C Pulse Rate 90 Respiratory Rate 18 Blood Pressure 148/69 H Pulse Oximetry 94 Oxygen Delivery Intake/Output Intake/Output: Intake & Output 08/18/21 08/19/21 08/20/21 08/21/21 23:59 23:59 23:59 23:59 Intake Total 810 311 8412 120 Output Total 910 Balance 100 -460 3330 120 Meds/Results Medications: Active Medications Generic Name Dose Route Start Last Admin Trade Name Freq PRN Reason Stop Dose Admin Apixaban 2.5 mg 08/20/21 09:00 08/20/21 20:02 Apixaban 2.5 Mg Tablet PO 2.5 mg Q12HR LÓPEZ Administration Aspirin 81 mg 08/19/21 09:00 08/20/21 09:11 Aspirin 81 Mg Enteric Tablet PO 81 mg DAILY LÓPEZ Administration Citalopram Hydrobromide 10 mg 08/19/21 21:00 08/20/21 20:02 Citalopram Hydrobromide 10 Mg Tablet PO 10 mg HS LÓPEZ Administration Famotidine 20 mg 08/19/21 21:00 08/20/21 20:02 Famotidine 20 Mg Tablet PO 20 mg Q12HR LÓPEZ Administration Hydroxyzine HCl 50 mg 08/19/21 20:15 Hydroxyzine Hcl 25 Mg Tablet PO Q4H PRN Itching Lisinopril 20 mg 08/19/21 09:00 08/20/21 09:11 Lisinopril 20 Mg Tablet PO 20 mg DAILY LÓPEZ Administration Loratadine 10 mg 08/19/21 03:27 Loratadine 10 Mg Tablet PO DAILY PRN allergy symptoms Memantine 28 mg 08/19/21 09:00 08/20/21 09:11 Memantine Hcl Xr 28 Mg Cap PO 28 mg DAILY LÓPEZ Administration Naloxone HCl 0.1 mg 08/19/21 20:15 Naloxone Hcl 0.4 Mg/Ml Vial IV PUSH Q2M PRN Opiate Reversal Ondansetron HCl 4 mg 08/19/21 20:15 Ondansetron Inj 4 Mg/2 Ml Vial IV PUSH Q4H PRN Nausea And Vomiting Oxycodone HCl 2.5 mg 08/20/21 08:23
--- NOTE | 2021-08-21 08:52 | PCPTNOTE ---
Attempted to see patient for Physical Therapy treatment. Patient declined transfer to chair, sitting at edge of bed, and supine LE exercises at this time.
[2021-08-21] MEDS: ASPIRIN 81 MG ENTERIC TABLET PO (09:08)
[2021-08-21] MEDS: RIVASTIGMINE TARTRATE 1.5 MG CAPSULE 3 MG PO ×2 (09:08→16:14)
[2021-08-21] MEDS: FAMOTIDINE 20 MG TABLET PO ×2 (09:08→20:52)
[2021-08-21] MEDS: APIXABAN 2.5 MG TABLET PO ×2 (09:08→20:52)
[2021-08-21] MEDS: SENNA/DOCUSATE SODIUM TABLET 2 TAB PO ×2 (09:08→16:14)
[2021-08-21] MEDS: MEMANTINE HCL XR 28 MG CAP PO (09:08)
[2021-08-21] MEDS: lisinopriL 20 MG TABLET PO (09:08)
[2021-08-21] MEDS: ROSUVASTATIN 10 MG TABLET PO (09:09)
[2021-08-21] MEDS: polyethylene glycoL 3350 17 GM POWD.PACK PO (09:09)
--- NOTE | 2021-08-21 09:23 | PM.IMPN ---
Progress Note: A&P Assessment and Plan (1) Closed fracture of neck of left femur: Code(s): S72.002A - Fracture of unspecified part of neck of left femur, initial encounter for closed fracture Status: Acute Assessment and Plan: Status post surgical repair. Continue PTOT. (2) Sundowning: Code(s): F05 - Delirium due to known physiological condition Status: Acute Assessment and Plan: Haldol p.r.n. (3) Chronic GERD: Code(s): K21.9 - Gastro-esophageal reflux disease without esophagitis Status: Acute Assessment and Plan: PPI (4) Dementia, unspecified, without behavioral disturbance: Code(s): F03.90 - Unspecified dementia without behavioral disturbance Status: Inactive Assessment and Plan: Continue memantine Continue rivastigmine (5) Diastolic dysfunction: Code(s): I51.89 - Other ill-defined heart diseases Status: Inactive Assessment and Plan: Appears to be compensated (6) Hyperlipidemia: Code(s): E78.5 - Hyperlipidemia, unspecified Status: Inactive Assessment and Plan: Continue statin Follow-up in the outpatient setting (7) Sensorineural hearing loss (SNHL), bilateral: Code(s): H90.3 - Sensorineural hearing loss, bilateral Status: Acute Assessment and Plan: Unchanged (8) Valvular heart disease: Code(s): I38 - Endocarditis, valve unspecified Status: Acute Assessment and Plan: Unchanged (9) Leukocytosis: Code(s): D72.829 - Elevated white blood cell count, unspecified Status: Acute Assessment and Plan: No fever, no chills. Monitor now Likely reactive Subjective Date/time seen: 08/21/21 09:23 no new issues Overnite Exam Narrative: Patient is laying in a stretcher Const: General: comfortable, no acute distress, well developed, alert and awake Nutritional Appearance: average body habitus Orientation/consciousness: oriented to person HENMT: Head: normal to inspection, normocephalic and atraumatic Ears: hearing grossly impaired bilaterally Face and sinus: normal facial exam Eyes: General: appearance normal, both eyes and all related structures Alignment and Position: alignment normal Pupils: Equal, round and reactive pupils present EOM: EOMs intact bilaterally Neck: Neck: full ROM, no lymphadenopathy and no JVD Thyroid: thyroid normal Lymphatic: no lymphadenopathy noted Resp: Effort & Inspection: normal respiratory effort and able to speak in complete sentences Auscultation: clear to auscultation bilaterally Cardio: Jugular venous distension: no JVD Rate: regular rate Rhythm: regular rhythm Heart sounds: S1 normal heart sound present and S2 normal heart sound present : General: Yes deferred Skin: Rashes: no rashes Wounds: no wounds Neuro: General: oriented to person, Unable to assess gait and other (Sensorineural hearing loss) Cranial nerves: Yes CN's II-XII intact bilaterally and Yes Equal, round and reactive pupils present Cognition (Neuro): abnormal cognition (Alzheimer's dementia) Speech: normal speech Gait exam (Neuro): Unable to assess gait Motor exam (neuro): 5/5 motor strength present throughout Extrem: General: other (Left lower extremity is shortened and externally rotated) Psych: Appearance: grossly normal Mental Status: other (Behavioral manifestations) Objective Data Vital Signs Vital Signs: Vital Signs - 24 hr 08/20/21 14:16 08/20/21 18:25 08/20/21 19:58 Temperature 97.9 F 97.8 F 98.2 F Pulse Rate 83 82 90 Respiratory Rate 22 H 16 18 Blood Pressure 105/53 L 152/58 H 145/79 H Pulse Oximetry 91 92 96 Oxygen Delivery 08/20/21 20:17 08/21/21 03:00 Temperature 98.6 F Pulse Rate 90 Respiratory Rate 18 Blood Pressure 148/69 H Pulse Oximetry 94 Oxygen Delivery Room Air Intake/Output Intake/Output: Intake & Output 08/18/21 08/19/21 08/20/21 08/21/21 23:59 23:59 23:59 23:5
[2021-08-21 11:00] VITALS: BP 136/68; PULSE 77; RESP 18; TEMP 36.7; O2SAT 93
[2021-08-21] MEDS: oxyCODONE HCL (*CRX) 2.5 MG TAB IR PO (16:50)
[2021-08-21 19:00] VITALS: BP 163/66; PULSE 84; RESP 18; TEMP 36.4; O2SAT 93
[2021-08-21] MEDS: CITALOPRAM HYDROBROMIDE 10 MG TABLET PO (20:52)
[2021-08-22] VITALS (8 sets, daily range): BP systolic 100–139; BP diastolic 58–94; PULSE 73–97; RESP 16–18; TEMP 36.2–37.1; O2SAT 97–100
[2021-08-22] MEDS: ALBUTEROL SULFATE NEB 2.5 MG/3 ML INH INHALATION (02:26)
[2021-08-22] MEDS: IPRATROPIUM BR 0.02% INH SOLN 0.5 MG/2.5 ML VIAL INHALATION (02:27)
--- NOTE | 2021-08-22 04:32 | PC.NURSE ---
called regarding results of stat chest xray on patient. We have not received a faxed report. Per Mariella in X-ray report has been completed and shows no acute findings in the chest. We should be receiving a faxed report.
[2021-08-22 05:13] LABS: Hematocrit 29.7 % (37.0-47.0); Hemoglobin 9.8 g/dL (12.0-15.0); Mean Corpuscular Hemoglobin 32.5 pg (26-34); Mean Corpuscular Volume 98.3 fl (80-100); Mean Platelet Volume 9.9 fl (7.4-10.4); Platelet Count Result 230 k/mm3 (150-375); Red Blood Count 3.02 M/mm3 (4.2-5.4); Red Cell Distribution Width 13.8 % (11.5-14.5)
--- NOTE | 2021-08-22 07:43 | PM.PNORT ---
Progress Note: A&P Assessment and Plan (1) Leukocytosis: Code(s): D72.829 - Elevated white blood cell count, unspecified Status: Acute (2) S/P hip replacement: Code(s): Z96.649 - Presence of unspecified artificial hip joint Status: Acute Assessment and Plan: patient is now post day 3. After cemented bipolar hemiarthroplasty for femoral neck fracture. She was able to follow some commands yesterday and cooperate with the Vivi steady mobilization. Hemoglobin is a little bit lower today at 9.8. This is consistent with having recent hip surgery and represents acute blood [place]. [place] [address] [place]. It was 14,900 yesterday. She has been afebrile. She has no known source of infection. She did have some purulent material that came from her vagina that we noted after placing the Hamilton catheter in placing her in the lateral decubitus position and we cultured this and it showed skin kae and no evidence of a actual infection. I am not sure of the clinical significance of this but I will bring this to the attention of the hospitalist who may know more about that. Her nasal swab did grow Staph aureus oxacillin sensitive. This increases her risk of wound infection and I am going to place her on Keflex to mitigate that risk for 10 days. The risk of side effects from the antibiotics is outweighed by the benefit of reducing the risk of deep infection which can be catastrophic in this circumstance. I was not aware of the fact that she lost her IV so she has not been receiving any IV Tylenol. Surprisingly her pain has not been significant but she was a little bit sore going back to bed yesterday and they gave her an oxycodone 2.5 mg. I am going to institute scheduled Tylenol for her and we will discontinue the oxycodone now since she has history of exacerbation of agitated delirium with narcotics in the past. The Tylenol seems to work very well for her. Subjective Subjective Date/Time Seen: 08/22/21 07:43 Objective Data Vital Signs Vital Signs: Vital Signs - 24 hr 08/21/21 09:15 08/21/21 11:00 08/21/21 19:00 Temperature 36.7 C 36.4 C L Pulse Rate 77 84 Respiratory Rate 18 18 Blood Pressure 136/68 163/66 H Pulse Oximetry 93 93 Oxygen Delivery Room Air 06/18/22 21:03 08/22/21 03:00 08/22/21 04:28 Temperature 37.1 C Pulse Rate 73 Respiratory Rate 18 Blood Pressure 100/94 H 111/58 L Pulse Oximetry 97 Oxygen Delivery Room Air 08/22/21 02:26 08/22/21 02:42 Temperature Pulse Rate 73 78 Respiratory Rate 16 16 Blood Pressure Pulse Oximetry Oxygen Delivery Intake/Output Intake/Output: Intake & Output 08/19/21 08/20/21 08/21/21 08/22/21 23:59 23:59 23:59 23:59 Intake Total 450 3330 1370 Output Total 910 Balance -460 3330 1370 Meds/Results Medications: Active Medications Generic Name Dose Route Start Last Admin Trade Name Freq PRN Reason Stop Dose Admin Acetaminophen 650 mg 08/22/21 12:30 Acetaminophen 325 Mg Tablet PO Q6HR LÓPEZ Acetaminophen 1,000 mg 08/22/21 07:45 Acetaminophen 500 Mg Tablet PO 08/22/21 07:46 ONCE ONE Apixaban 2.5 mg 08/20/21 09:00 08/21/21 20:52 Apixaban 2.5 Mg Tablet PO 2.5 mg Q12HR LÓPEZ Administration Aspirin 81 mg 08/19/21 09:00 08/21/21 09:08 Aspirin 81 Mg Enteric Tablet PO 81 mg DAILY LÓPEZ Administration Cephalexin HCl 500 mg 08/22/21 12:00 Cephalexin 500 Mg Capsule PO Q6HR LÓPEZ Citalopram Hydrobromide 10 mg 08/19/21 21:00 08/21/21 20:52 Citalopram Hydrobromide 10 Mg Tablet PO 10 mg HS LÓPEZ Administration Famotidine 20 mg 08/19/21 21:00 08/21/21 20:52 Famotidine 20 Mg Tablet PO 20 mg Q12HR LÓPEZ Administration Hydroxyzine HCl 50 mg 08/19/21 20:15 Hydroxyzine Hcl 25 Mg Tablet PO Q4H PRN Itching Lisinopril 20 mg 08/19/21 09:00 08/21/21 09:08 Lisinopril 20 Mg Tablet PO 20 mg DAILY LÓPEZ Administr
[2021-08-22] MEDS: ACETAMINOPHEN 500 MG TABLET 1000 MG PO (08:41)
[2021-08-22] MEDS: FAMOTIDINE 20 MG TABLET PO ×2 (08:43→20:11)
[2021-08-22] MEDS: lisinopriL 20 MG TABLET PO (08:43)
[2021-08-22] MEDS: SENNA/DOCUSATE SODIUM TABLET 2 TAB PO ×2 (08:43→17:03)
[2021-08-22] MEDS: ASPIRIN 81 MG ENTERIC TABLET PO (08:43)
[2021-08-22] MEDS: APIXABAN 2.5 MG TABLET PO ×2 (08:43→20:11)
[2021-08-22] MEDS: MEMANTINE HCL XR 28 MG CAP PO (08:44)
[2021-08-22] MEDS: ROSUVASTATIN 10 MG TABLET PO (08:44)
[2021-08-22] MEDS: polyethylene glycoL 3350 17 GM POWD.PACK PO (08:44)
[2021-08-22] MEDS: RIVASTIGMINE TARTRATE 1.5 MG CAPSULE 3 MG PO ×2 (08:44→17:03)
--- NOTE | 2021-08-22 11:13 | PM.IMPN ---
Progress Note: A&P Assessment and Plan (1) Closed fracture of neck of left femur: Code(s): S72.002A - Fracture of unspecified part of neck of left femur, initial encounter for closed fracture Status: Acute Assessment and Plan: Status post surgical repair. Continue PTOT. (2) Sundowning: Code(s): F05 - Delirium due to known physiological condition Status: Acute Assessment and Plan: Haldol p.r.n. (3) Chronic GERD: Code(s): K21.9 - Gastro-esophageal reflux disease without esophagitis Status: Acute Assessment and Plan: PPI (4) Dementia, unspecified, without behavioral disturbance: Code(s): F03.90 - Unspecified dementia without behavioral disturbance Status: Inactive Assessment and Plan: Continue memantine Continue rivastigmine (5) Diastolic dysfunction: Code(s): I51.89 - Other ill-defined heart diseases Status: Inactive Assessment and Plan: Appears to be compensated (6) Hyperlipidemia: Code(s): E78.5 - Hyperlipidemia, unspecified Status: Inactive Assessment and Plan: Continue statin Follow-up in the outpatient setting (7) Sensorineural hearing loss (SNHL), bilateral: Code(s): H90.3 - Sensorineural hearing loss, bilateral Status: Acute Assessment and Plan: Unchanged (8) Valvular heart disease: Code(s): I38 - Endocarditis, valve unspecified Status: Acute Assessment and Plan: Unchanged (9) Leukocytosis: Code(s): D72.829 - Elevated white blood cell count, unspecified Status: Acute Assessment and Plan: No fever, no chills. Monitor now Likely reactive (10) Abnormal cytological findings in female genital organs: Code(s): R87.69 - Abnormal cytological findings in specimens from other female genital organs Status: Acute Assessment and Plan: E coli noted on intraoperative culture. Likely colonization. Per nursing staff no discharge is noted. Will Re culture monitor results. Subjective Date/time seen: 08/22/21 11:13 No new complaints. Episode of emesis this morning. Exam Narrative: Patient is laying in a stretcher Const: General: comfortable, no acute distress, well developed, alert and awake Nutritional Appearance: average body habitus Orientation/consciousness: oriented to person HENMT: Head: normal to inspection, normocephalic and atraumatic Ears: hearing grossly impaired bilaterally Face and sinus: normal facial exam Eyes: General: appearance normal, both eyes and all related structures Alignment and Position: alignment normal Pupils: Equal, round and reactive pupils present EOM: EOMs intact bilaterally Neck: Neck: full ROM, no lymphadenopathy and no JVD Thyroid: thyroid normal Lymphatic: no lymphadenopathy noted Resp: Effort & Inspection: normal respiratory effort and able to speak in complete sentences Auscultation: clear to auscultation bilaterally Cardio: Jugular venous distension: no JVD Rate: regular rate Rhythm: regular rhythm Heart sounds: S1 normal heart sound present and S2 normal heart sound present : General: Yes deferred Skin: Rashes: no rashes Wounds: no wounds Neuro: General: oriented to person, Unable to assess gait and other (Sensorineural hearing loss) Cranial nerves: Yes CN's II-XII intact bilaterally and Yes Equal, round and reactive pupils present Cognition (Neuro): abnormal cognition (Alzheimer's dementia) Speech: normal speech Gait exam (Neuro): Unable to assess gait Motor exam (neuro): 5/5 motor strength present throughout Extrem: General: other (Left lower extremity is shortened and externally rotated) Psych: Appearance: grossly normal Mental Status: other (Behavioral manifestations) Objective Data Vital Signs Vital Signs: Vital Signs - 24 hr 08/21/21 19:00 08/21/21 21:03 08/22/21 03:00 Temperature 97.5 F L 98.8 F Pulse Rate 84 73 Respiratory Rate 18 18
[2021-08-22] MEDS: CEPHALEXIN 500 MG CAPSULE PO ×2 (11:52→17:03)
[2021-08-22] MEDS: ACETAMINOPHEN 325 MG TABLET 650 MG PO ×2 (11:52→17:03)
[2021-08-22] MEDS: hydrOXYzine HCL 25 MG TABLET 50 MG PO (20:04)
[2021-08-22] MEDS: CITALOPRAM HYDROBROMIDE 10 MG TABLET PO (20:11)
[2021-08-23] MEDS: CEPHALEXIN 500 MG CAPSULE PO ×4 (01:30→17:38)
[2021-08-23 04:30] VITALS: BP 147/64; PULSE 78; RESP 18; TEMP 36.3; O2SAT 99
[2021-08-23] MEDS: ACETAMINOPHEN 325 MG TABLET 650 MG PO ×3 (05:21→17:38)
[2021-08-23] MEDS: ONDANSETRON HCL ODT 4 MG TABLET PO (05:30)
--- NOTE | 2021-08-23 07:40 | PM.PNORT ---
Progress Note: A&P Assessment and Plan (1) Closed fracture of neck of left femur: Code(s): S72.002A - Fracture of unspecified part of neck of left femur, initial encounter for closed fracture Status: Acute Assessment and Plan: Status post surgical repair. Continue PTOT. Patient is postoperative day 4. After cemented bipolar hemiarthroplasty left hip. A CBC is pending. She is resting comfortably currently. Her incision is dry and intact. I was told by nursing that she was crying when they were trying to get her up last night. I do not know if this is part of her delirium or whether she is having pain. She is getting scheduled Tylenol. We will order the 2.5 mg oxycodone every 6 hours as needed again and I am going to give her a prescription for this for the assisted. This is printed and signed. She appears ready for discharge from an orthopedic standpoint. I would like to see her back in 2 or 3 weeks in the office. (2) : Code(s): F05 - Delirium due to known physiological condition Status: Acute Assessment and Plan: Haldol p.r.n. (3) Chronic GERD: Code(s): K21.9 - Gastro-esophageal reflux disease without esophagitis Status: Acute Assessment and Plan: PPI (4) Dementia, unspecified, without behavioral disturbance: Code(s): F03.90 - Unspecified dementia without behavioral disturbance Status: Inactive Assessment and Plan: Continue memantine Continue rivastigmine (5) Diastolic dysfunction: Code(s): I51.89 - Other ill-defined heart diseases Status: Inactive Assessment and Plan: Appears to be compensated (6) Hyperlipidemia: Code(s): E78.5 - Hyperlipidemia, unspecified Status: Inactive Assessment and Plan: Continue statin Follow-up in the outpatient setting (7) Sensorineural hearing loss (SNHL), bilateral: Code(s): H90.3 - Sensorineural hearing loss, bilateral Status: Acute Assessment and Plan: Unchanged (8) Valvular heart disease: Code(s): I38 - Endocarditis, valve unspecified Status: Acute Assessment and Plan: Unchanged (9) Leukocytosis: Code(s): D72.829 - Elevated white blood cell count, unspecified Status: Acute Assessment and Plan: No fever, no chills. Monitor now Likely reactive (10) Abnormal cytological findings in female genital organs: Code(s): R87.69 - Abnormal cytological findings in specimens from other female genital organs Status: Acute Assessment and Plan: E coli noted on intraoperative culture. Likely colonization. Per nursing staff no discharge is noted. Will Re culture monitor results. Subjective Subjective Date/Time Seen: 08/23/21 07:40 Objective Data Vital Signs Vital Signs: Vital Signs - 24 hr 08/22/21 08:45 08/22/21 08:45 08/22/21 14:05 Temperature 36.2 C L Pulse Rate 97 76 Respiratory Rate 18 Blood Pressure 133/58 L 139/70 Pulse Oximetry 100 Oxygen Delivery Room Air 08/22/21 20:52 08/22/21 21:18 08/23/21 04:30 Temperature 36.2 C L 36.3 C L Pulse Rate 95 78 Respiratory Rate 16 18 Blood Pressure 136/70 147/64 H Pulse Oximetry 100 98 99 Oxygen Delivery Room Air Intake/Output Intake/Output: Intake & Output 08/20/21 08/21/21 08/22/21 08/23/21 23:59 23:59 23:59 23:59 Intake Total 3330 1370 90 120 Output Total 1100 Balance 3330 1370 -1010 120 Meds/Results Medications: Active Medications Generic Name Dose Route Start Last Admin Trade Name Brandee PRN Reason Stop Dose Admin Acetaminophen 650 mg 08/22/21 12:30 08/23/21 05:21 Acetaminophen 325 Mg Tablet PO 650 mg Q6HR LÓPEZ Administration Apixaban 2.5 mg 08/20/21 09:00 08/22/21 20:11 Apixaban 2.5 Mg Tablet PO 2.5 mg Q12HR LÓPEZ Administration Aspirin 81 mg 08/19/21 09:00 08/22/21 08:43 Aspirin 81 Mg Enteric Tablet PO 81 mg DAILY LÓPEZ Administration
[2021-08-23 07:50] LABS: Basophils Percent Auto 0.3 % (0.2-1.2); Eosinophils Absolute Auto 0.1 K/mm3 (0-0.3); Eosinophils Percent Auto 0.9 % (0-4.4); Hematocrit 27.3 % (37.0-47.0); Immature Granulocyte Absolute 0.05 K/mm3 (0.00-0.031); Immature Granulocyte Percent A 0.7 % (0-0.5); Lymphocytes Absolute Auto 0.81 K/mm3 (0.9-3.2); Lymphocytes Percent Auto 10.8 % (18.3-44.2); Mean Corpuscular Hemoglobin 32.6 pg (26-34); Mean Corpuscular Volume 98.9 fl (80-100); Mean Platelet Volume 9.4 fl (7.4-10.4); Monocytes Absolute Auto 0.8 K/mm3 (0.1-0.6); Monocytes Percent Auto 10.3 % (2.6-8.5); Neutrophils Absolute Auto 5.8 K/mm3 (1.3-6.7); Platelet Count Result 239 k/mm3 (150-375); Red Blood Count 2.76 M/mm3 (4.2-5.4); Red Cell Distribution Width 14.3 % (11.5-14.5); White Blood Count 7.5 K/mm3 (4.5-10.0)
[2021-08-23] MEDS: LORATADINE 10 MG TABLET PO (08:22)
[2021-08-23] MEDS: RIVASTIGMINE TARTRATE 1.5 MG CAPSULE 3 MG PO ×2 (08:22→17:38)
[2021-08-23] MEDS: FAMOTIDINE 20 MG TABLET PO ×2 (08:23→20:34)
[2021-08-23] MEDS: APIXABAN 2.5 MG TABLET PO ×2 (08:23→20:34)
[2021-08-23] MEDS: lisinopriL 20 MG TABLET PO (08:23)
[2021-08-23] MEDS: ASPIRIN 81 MG ENTERIC TABLET PO (08:23)
[2021-08-23] MEDS: MEMANTINE HCL XR 28 MG CAP PO (08:23)
[2021-08-23] MEDS: ROSUVASTATIN 10 MG TABLET PO (08:24)
[2021-08-23] MEDS: SENNA/DOCUSATE SODIUM TABLET 2 TAB PO (08:25)
[2021-08-23] MEDS: polyethylene glycoL 3350 17 GM POWD.PACK PO (08:25)
--- NOTE | 2021-08-23 10:09 | PM.IMPN ---
Progress Note: A&P Assessment and Plan (1) Closed fracture of neck of left femur: Code(s): S72.002A - Fracture of unspecified part of neck of left femur, initial encounter for closed fracture Status: Acute Assessment and Plan: Status post surgical repair. Continue PTOT. (2) Sundowning: Code(s): F05 - Delirium due to known physiological condition Status: Acute Assessment and Plan: Haldol p.r.n. (3) Chronic GERD: Code(s): K21.9 - Gastro-esophageal reflux disease without esophagitis Status: Acute Assessment and Plan: PPI (4) Dementia, unspecified, without behavioral disturbance: Code(s): F03.90 - Unspecified dementia without behavioral disturbance Status: Inactive Assessment and Plan: Continue memantine Continue rivastigmine (5) Diastolic dysfunction: Code(s): I51.89 - Other ill-defined heart diseases Status: Inactive Assessment and Plan: Appears to be compensated (6) Hyperlipidemia: Code(s): E78.5 - Hyperlipidemia, unspecified Status: Inactive Assessment and Plan: Continue statin Follow-up in the outpatient setting (7) Sensorineural hearing loss (SNHL), bilateral: Code(s): H90.3 - Sensorineural hearing loss, bilateral Status: Acute Assessment and Plan: Unchanged (8) Valvular heart disease: Code(s): I38 - Endocarditis, valve unspecified Status: Acute Assessment and Plan: Unchanged (9) Leukocytosis: Code(s): D72.829 - Elevated white blood cell count, unspecified Status: Acute Assessment and Plan: No fever, no chills. Monitor now Likely reactive (10) Abnormal cytological findings in female genital organs: Code(s): R87.69 - Abnormal cytological findings in specimens from other female genital organs Status: Acute Assessment and Plan: E coli noted on intraoperative vaginal culture. Likely colonization. Per nursing staff no discharge is noted. Will Re culture monitor results. Subjective Date/time seen: 08/23/21 10:09 No new issues. He breakfast without nausea all Exam Narrative: Patient is laying in a stretcher Const: General: comfortable, no acute distress, well developed, alert and awake Nutritional Appearance: average body habitus Orientation/consciousness: oriented to person HENMT: Head: normal to inspection, normocephalic and atraumatic Ears: hearing grossly impaired bilaterally Face and sinus: normal facial exam Eyes: General: appearance normal, both eyes and all related structures Alignment and Position: alignment normal Pupils: Equal, round and reactive pupils present EOM: EOMs intact bilaterally Neck: Neck: full ROM, no lymphadenopathy and no JVD Thyroid: thyroid normal Lymphatic: no lymphadenopathy noted Resp: Effort & Inspection: normal respiratory effort and able to speak in complete sentences Auscultation: clear to auscultation bilaterally Cardio: Jugular venous distension: no JVD Rate: regular rate Rhythm: regular rhythm Heart sounds: S1 normal heart sound present and S2 normal heart sound present : General: Yes deferred Skin: Rashes: no rashes Wounds: no wounds Neuro: General: oriented to person, Unable to assess gait and other (Sensorineural hearing loss) Cranial nerves: Yes CN's II-XII intact bilaterally and Yes Equal, round and reactive pupils present Cognition (Neuro): abnormal cognition (Alzheimer's dementia) Speech: normal speech Gait exam (Neuro): Unable to assess gait Motor exam (neuro): 5/5 motor strength present throughout Extrem: General: other (Left lower extremity is shortened and externally rotated) Psych: Appearance: grossly normal Mental Status: other (Behavioral manifestations) Objective Data Vital Signs Vital Signs: Vital Signs - 24 hr 08/22/21 14:05 08/22/21 20:52 08/22/21 21:18 Temperature 97.1 F L 97.2 F L Pulse Rate 76 95 Respiratory Rate 18
[2021-08-23 14:00] VITALS: BP 117/78; PULSE 117; RESP 16; TEMP 36.7; O2SAT 92
[2021-08-23 14:12] VITALS: O2SAT 98
[2021-08-23 20:08] VITALS: BP 143/60; PULSE 69; RESP 18; TEMP 36.1; O2SAT 97
[2021-08-23] MEDS: CITALOPRAM HYDROBROMIDE 10 MG TABLET PO (20:34)
[2021-08-24] MEDS: ACETAMINOPHEN 325 MG TABLET 650 MG PO ×3 (00:21→11:26)
[2021-08-24] MEDS: CEPHALEXIN 500 MG CAPSULE PO ×3 (00:21→11:26)
[2021-08-24] MEDS: hydrOXYzine HCL 25 MG TABLET 50 MG PO (00:36)
[2021-08-24 04:30] VITALS: BP 158/71; PULSE 64; RESP 18; TEMP 35.9; O2SAT 99
[2021-08-24 07:53] VITALS: BP 146/66; PULSE 63
[2021-08-24] MEDS: RIVASTIGMINE TARTRATE 1.5 MG CAPSULE 3 MG PO (07:57)
[2021-08-24] MEDS: polyethylene glycoL 3350 17 GM POWD.PACK PO (07:57)
[2021-08-24] MEDS: MEMANTINE HCL XR 28 MG CAP PO (07:58)
[2021-08-24] MEDS: APIXABAN 2.5 MG TABLET PO (07:59)
[2021-08-24] MEDS: lisinopriL 20 MG TABLET PO (07:59)
[2021-08-24] MEDS: ASPIRIN 81 MG ENTERIC TABLET PO (07:59)
[2021-08-24] MEDS: ROSUVASTATIN 10 MG TABLET PO (08:00)
[2021-08-24] MEDS: SENNA/DOCUSATE SODIUM TABLET 2 TAB PO (08:00)
[2021-08-24] MEDS: FAMOTIDINE 20 MG TABLET PO (08:00)
--- NOTE | 2021-08-24 10:55 | PM.IMPN ---
Progress Note: A&P Assessment and Plan (1) Closed fracture of neck of left femur: Code(s): S72.002A - Fracture of unspecified part of neck of left femur, initial encounter for closed fracture Status: Acute Assessment and Plan: Status post surgical repair. Continue PTOT. (2) Sundowning: Code(s): F05 - Delirium due to known physiological condition Status: Acute Assessment and Plan: Haldol p.r.n. (3) Chronic GERD: Code(s): K21.9 - Gastro-esophageal reflux disease without esophagitis Status: Acute Assessment and Plan: PPI (4) Dementia, unspecified, without behavioral disturbance: Code(s): F03.90 - Unspecified dementia without behavioral disturbance Status: Inactive Assessment and Plan: Continue memantine Continue rivastigmine (5) Diastolic dysfunction: Code(s): I51.89 - Other ill-defined heart diseases Status: Inactive Assessment and Plan: Appears to be compensated (6) Hyperlipidemia: Code(s): E78.5 - Hyperlipidemia, unspecified Status: Inactive Assessment and Plan: Continue statin Follow-up in the outpatient setting (7) Sensorineural hearing loss (SNHL), bilateral: Code(s): H90.3 - Sensorineural hearing loss, bilateral Status: Acute Assessment and Plan: Unchanged (8) Valvular heart disease: Code(s): I38 - Endocarditis, valve unspecified Status: Acute Assessment and Plan: Unchanged (9) Leukocytosis: Code(s): D72.829 - Elevated white blood cell count, unspecified Status: Acute Assessment and Plan: No fever, no chills. Monitor now Likely reactive (10) Abnormal cytological findings in female genital organs: Code(s): R87.69 - Abnormal cytological findings in specimens from other female genital organs Status: Acute Assessment and Plan: E coli noted on vaginal culture Repeat cultures grew slight growth of Pseudomonas. Spoke with infectious disease pharmacist. Agreed that these were likely colonization. No treatment needed. Trend cultures until complete Subjective Date/time seen: 08/24/21 10:55 No complaints Exam Narrative: Patient is laying in a stretcher Const: General: comfortable, no acute distress, well developed, alert and awake Nutritional Appearance: average body habitus Orientation/consciousness: oriented to person HENMT: Head: normal to inspection, normocephalic and atraumatic Ears: hearing grossly impaired bilaterally Face and sinus: normal facial exam Eyes: General: appearance normal, both eyes and all related structures Alignment and Position: alignment normal Pupils: Equal, round and reactive pupils present EOM: EOMs intact bilaterally Neck: Neck: full ROM, no lymphadenopathy and no JVD Thyroid: thyroid normal Lymphatic: no lymphadenopathy noted Resp: Effort & Inspection: normal respiratory effort and able to speak in complete sentences Auscultation: clear to auscultation bilaterally Cardio: Jugular venous distension: no JVD Rate: regular rate Rhythm: regular rhythm Heart sounds: S1 normal heart sound present and S2 normal heart sound present : General: Yes deferred Skin: Rashes: no rashes Wounds: no wounds Neuro: General: oriented to person, Unable to assess gait and other (Sensorineural hearing loss) Cranial nerves: Yes CN's II-XII intact bilaterally and Yes Equal, round and reactive pupils present Cognition (Neuro): abnormal cognition (Alzheimer's dementia) Speech: normal speech Gait exam (Neuro): Unable to assess gait Motor exam (neuro): 5/5 motor strength present throughout Extrem: General: other (Left lower extremity is shortened and externally rotated) Psych: Appearance: grossly normal Mental Status: other (Behavioral manifestations) Objective Data Vital Signs Vital Signs: Vital Signs - 24 hr 08/23/21 14:12 08/23/21 14:00 08/23/21 20:08 Temperature 98.1 F 96.
--- NOTE | 2021-08-24 13:34 | PCPTNOTE ---
Attempted to see patient for PT, however patient unable to wake up enough to participate in therapy. Per patient's family member patient was up all night.
--- NOTE | 2021-08-24 13:58 | PCOTNOTE ---
Attempted to see patient again this PM for 2nd attempt for OT - unable to arouse patient to participate. Will continue plan of care tomorrow.
[2021-08-24 14:00] VITALS: BP 125/50; PULSE 62; RESP 16; TEMP 36.4; O2SAT 97
[2021-08-24 20:03] VITALS: BP 145/60; PULSE 64; RESP 18; TEMP 36.2; O2SAT 97
[2021-08-25 03:54] VITALS: BP 151/57; PULSE 61; RESP 18; TEMP 36.6; O2SAT 96
[2021-08-25] MEDS: CEPHALEXIN 500 MG CAPSULE PO ×4 (05:06→23:53)
[2021-08-25] MEDS: ACETAMINOPHEN 325 MG TABLET 650 MG PO ×4 (05:06→23:53)
--- NOTE | 2021-08-25 08:06 | PCOTNOTE ---
Patient very agitated, unwilling to participate in any ADLs or mobility with redirection. Will attempt again to see for OT this date or continue plan of care tomorrow.
[2021-08-25 08:17] LABS: Basophils Absolute Auto 0.1 K/mm3 (0.0-0.1); Basophils Percent Auto 0.6 % (0.2-1.2); Eosinophils Absolute Auto 0.2 K/mm3 (0-0.3); Eosinophils Percent Auto 1.5 % (0-4.4); Hematocrit 34.6 % (37.0-47.0); Hemoglobin 10.3 g/dL (12.0-15.0); Immature Granulocyte Absolute 0.14 K/mm3 (0.00-0.031); Immature Granulocyte Percent A 1.1 % (0-0.5); Lymphocytes Absolute Auto 1.57 K/mm3 (0.9-3.2); Lymphocytes Percent Auto 12.7 % (18.3-44.2); Mean Corpuscular HGB Conc 29.8 g/dl (32-36); Mean Corpuscular Volume 110.9 fl (80-100); Mean Platelet Volume 9.2 fl (7.4-10.4); Monocytes Percent Auto 8.2 % (2.6-8.5); Neutrophils Absolute Auto 9.3 K/mm3 (1.3-6.7); Neutrophils Percent Auto 75.9 % (45.5-73.1); Platelet Count Result 339 k/mm3 (150-375); Red Blood Count 3.12 M/mm3 (4.2-5.4); Red Cell Distribution Width 14.8 % (11.5-14.5); White Blood Count 12.3 K/mm3 (4.5-10.0)
[2021-08-25 08:30] LABS: Alanine Aminotransferase 101 U/L (6-35); Albumin Level 3.4 g/dL (3.5-5.1); Alkaline Phosphatase 82 U/L (38-126); Anion Gap 6 mmol/L (8-16); Aspartate Amino Transferase 99 U/L (14-36); Bilirubin,Total 0.7 mg/dL (0.2-1.3); Blood Urea Nitrogen 14 mg/dL (7-17); Calcium 9.2 mg/dL (8.4-10.2); Carbon Dioxide 27 mmol/L (22-30); Chloride 96 mmol/L (98-107); Estimated CRCL calculation 40 ml/min; Estimated Glomerular Filt Rate > 60; Glucose 150 mg/dL (65-110); Potassium 3.5 mmol/L (3.4-5.0); Sodium 129 mmol/L (137-145)
[2021-08-25] MEDS: SODIUM CHLORIDE 0.9% IV 1,000 ML 999 ML IV CONT (09:57)
[2021-08-25 10:56] LABS: Lactic Acid Reflex 1.5 mmol/L (0.7-2.0)
[2021-08-25 11:15] LABS: Procalcitonin 0.1 ng/mL
[2021-08-25 11:34] VITALS: BMI 25.7
--- NOTE | 2021-08-25 12:55 | PCNSR ---
On 08/25/21, the student, Anand Lazo, provided care and completed [facility] documentation on this patient. I have reviewed the student's documentation and agree with the findings.
[2021-08-25 13:43] VITALS: BP 143/54; PULSE 70; RESP 18; TEMP 37.1; O2SAT 98
[2021-08-25 14:15] LABS: Hematocrit 29.1 % (37.0-47.0); Hemoglobin 9.6 g/dL (12.0-15.0); Mean Corpuscular Hemoglobin 32.5 pg (26-34); Mean Corpuscular Volume 98.6 fl (80-100); Mean Platelet Volume 9.3 fl (7.4-10.4); Platelet Count Result 349 k/mm3 (150-375); Red Blood Count 2.95 M/mm3 (4.2-5.4); Red Cell Distribution Width 14.7 % (11.5-14.5)
--- NOTE | 2021-08-25 14:17 | PM.IMPN ---
Progress Note: A&P Assessment and Plan (1) Closed fracture of neck of left femur: Code(s): S72.002A - Fracture of unspecified part of neck of left femur, initial encounter for closed fracture Status: Acute Assessment and Plan: Status post surgical repair. Continue PTOT. (2) Sundowning: Code(s): F05 - Delirium due to known physiological condition Status: Acute Assessment and Plan: Stable, responding well to redirection (3) Chronic GERD: Code(s): K21.9 - Gastro-esophageal reflux disease without esophagitis Status: Acute Assessment and Plan: PPI (4) Dementia, unspecified, without behavioral disturbance: Code(s): F03.90 - Unspecified dementia without behavioral disturbance Status: Inactive Assessment and Plan: Continue memantine Continue rivastigmine (5) Diastolic dysfunction: Code(s): I51.89 - Other ill-defined heart diseases Status: Inactive Assessment and Plan: Appears to be compensated (6) Hyperlipidemia: Code(s): E78.5 - Hyperlipidemia, unspecified Status: Inactive Assessment and Plan: Continue statin Follow-up in the outpatient setting (7) Sensorineural hearing loss (SNHL), bilateral: Code(s): H90.3 - Sensorineural hearing loss, bilateral Status: Acute Assessment and Plan: Unchanged (8) Leukocytosis: Code(s): D72.829 - Elevated white blood cell count, unspecified Status: Acute Assessment and Plan: No fever, no chills. Monitor now Likely reactive (9) Abnormal cytological findings in female genital organs: Code(s): R87.69 - Abnormal cytological findings in specimens from other female genital organs Status: Acute Assessment and Plan: E coli noted on vaginal culture Repeat cultures grew slight growth of Pseudomonas. Spoke with infectious disease pharmacist. Agreed that these were likely colonization. No treatment needed. Trend cultures until complete Subjective Date/time seen: 08/25/21 14:17 Interval history: Patient resting comfortably in bed without complaints. No overnight events noted. No chest pain or shortness of breath. No nausea vomiting diarrhea. No fevers or chills. Review of Systems Review of Systems: ROS unobtainable: Yes unobtainable due to mental status Exam Narrative: General: Patient resting comfortably in bed, no acute distress HEENT: Atraumatic, normocephalic, mucous membranes moist CV: Regular rate and rhythm, S1, S2, soft systolic murmur noted Lungs: Clear to auscultation bilaterally, no rales or crackles noted, no wheezes, good air entry Abdomen: Soft, nontender, nondistended Extremities: Normal to inspection, no edema noted Skin: No rashes noted, no lesions or wounds seen Psych: Euthymic, normal affect Objective Data Vital Signs Vital Signs: Vital Signs - 24 hr 08/24/21 19:52 08/24/21 20:03 08/25/21 03:54 Temperature 97.1 F L 97.8 F Pulse Rate 64 61 Respiratory Rate 18 18 Blood Pressure 145/60 H 151/57 H Pulse Oximetry 97 96 Oxygen Delivery Room Air 08/25/21 07:23 08/25/21 13:43 Temperature 98.7 F Pulse Rate 70 Respiratory Rate 18 Blood Pressure 143/54 H Pulse Oximetry 98 Oxygen Delivery Room Air Intake/Output Intake/Output: Intake & Output 08/22/21 08/23/21 08/24/21 08/25/21 23:59 23:59 23:59 23:59 Intake Total 90 1230 570 360 Output Total 1100 400 500 Balance -1010 1230 170 -140 Meds/Results Medications: Active Medications Generic Name Dose Route Start Last Admin Trade Name Freq PRN Reason Stop Dose Admin Acetaminophen 650 mg 08/22/21 12:30 08/25/21 11:15 Acetaminophen 325 Mg Tablet PO 650 mg Q6HR LÓPEZ Administration Apixaban 2.5 mg 08/20/21 09:00 08/25/21 08:21 Apixaban 2.5 Mg Tablet PO Not Given Q12HR [facility] Aspirin 81 mg 08/19/21 09:00 08/25/21 08:21 Aspirin 81 Mg Enteric Tablet PO Not Given DA
[2021-08-25 14:30] LABS: Anion Gap 5 mmol/L (8-16); Blood Urea Nitrogen 15 mg/dL (7-17); Calcium 8.6 mg/dL (8.4-10.2); Carbon Dioxide 27 mmol/L (22-30); Chloride 98 mmol/L (98-107); Estimated CRCL calculation 45 ml/min; Estimated Glomerular Filt Rate > 60; Glucose 167 mg/dL (65-110); Potassium 4.1 mmol/L (3.4-5.0); Sodium 130 mmol/L (137-145)
[2021-08-25] MEDS: SENNA/DOCUSATE SODIUM TABLET 2 TAB PO (16:03)
[2021-08-25] MEDS: RIVASTIGMINE TARTRATE 1.5 MG CAPSULE 3 MG PO (16:03)
[2021-08-25] MEDS: APIXABAN 2.5 MG TABLET PO (20:42)
[2021-08-25] MEDS: CITALOPRAM HYDROBROMIDE 10 MG TABLET PO (20:42)
[2021-08-25] MEDS: FAMOTIDINE 20 MG TABLET PO (20:42)
[2021-08-25 20:45] VITALS: BP 158/62; PULSE 77; RESP 20; TEMP 36.8; O2SAT 98
[2021-08-26 06:30] VITALS: BP 150/74; PULSE 79; RESP 20; TEMP 37.2; O2SAT 98
[2021-08-26 08:45] LABS: Basophils Absolute Auto 0.1 K/mm3 (0.0-0.1); Basophils Percent Auto 0.5 % (0.2-1.2); Eosinophils Absolute Auto 0.2 K/mm3 (0-0.3); Eosinophils Percent Auto 1.6 % (0-4.4); Hemoglobin 10.4 g/dL (12.0-15.0); Immature Granulocyte Absolute 0.13 K/mm3 (0.00-0.031); Immature Granulocyte Percent A 1.2 % (0-0.5); Lymphocytes Absolute Auto 1.31 K/mm3 (0.9-3.2); Lymphocytes Percent Auto 11.7 % (18.3-44.2); Mean Corpuscular HGB Conc 33.5 g/dl (32-36); Mean Corpuscular Hemoglobin 32.9 pg (26-34); Mean Corpuscular Volume 98.1 fl (80-100); Mean Platelet Volume 9.2 fl (7.4-10.4); Monocytes Absolute Auto 0.9 K/mm3 (0.1-0.6); Monocytes Percent Auto 8.2 % (2.6-8.5); Neutrophils Absolute Auto 8.6 K/mm3 (1.3-6.7); Neutrophils Percent Auto 76.8 % (45.5-73.1); Platelet Count Result 402 k/mm3 (150-375); Red Blood Count 3.16 M/mm3 (4.2-5.4); Red Cell Distribution Width 14.6 % (11.5-14.5); White Blood Count 11.2 K/mm3 (4.5-10.0)
[2021-08-26 08:59] LABS: Alanine Aminotransferase 84 U/L (6-35); Albumin Level 3.5 g/dL (3.5-5.1); Alkaline Phosphatase 81 U/L (38-126); Anion Gap 4 mmol/L (8-16); Aspartate Amino Transferase 82 U/L (14-36); Bilirubin,Total 0.7 mg/dL (0.2-1.3); Blood Urea Nitrogen 10 mg/dL (7-17); Calcium 9.4 mg/dL (8.4-10.2); Carbon Dioxide 27 mmol/L (22-30); Chloride 102 mmol/L (98-107); Estimated CRCL calculation 45 ml/min; Estimated Glomerular Filt Rate > 60; Glucose 172 mg/dL (65-110); Potassium 3.8 mmol/L (3.4-5.0); Sodium 133 mmol/L (137-145)
[2021-08-26] MEDS: SENNA/DOCUSATE SODIUM TABLET 2 TAB PO ×2 (09:53→17:34)
[2021-08-26] MEDS: RIVASTIGMINE TARTRATE 1.5 MG CAPSULE 3 MG PO ×2 (09:53→17:34)
[2021-08-26] MEDS: ROSUVASTATIN 10 MG TABLET PO (09:53)
[2021-08-26] MEDS: lisinopriL 20 MG TABLET PO (09:53)
[2021-08-26] MEDS: FAMOTIDINE 20 MG TABLET PO ×2 (09:54→20:04)
[2021-08-26] MEDS: APIXABAN 2.5 MG TABLET PO ×2 (09:54→20:04)
[2021-08-26] MEDS: ASPIRIN 81 MG ENTERIC TABLET PO (09:54)
[2021-08-26] MEDS: MEMANTINE HCL XR 28 MG CAP PO (09:55)
[2021-08-26] MEDS: polyethylene glycoL 3350 17 GM POWD.PACK PO (09:55)
[2021-08-26] MEDS: ACETAMINOPHEN 325 MG TABLET 650 MG PO ×3 (11:36→20:04)
[2021-08-26] MEDS: CEPHALEXIN 500 MG CAPSULE PO ×2 (11:36→17:34)
--- NOTE | 2021-08-26 11:45 | PM.IMPN ---
Progress Note: A&P Assessment and Plan (1) Closed fracture of neck of left femur: Code(s): S72.002A - Fracture of unspecified part of neck of left femur, initial encounter for closed fracture Status: Acute Assessment and Plan: Status post surgical repair. Continue PTOT, improving (2) Sundowning: Code(s): F05 - Delirium due to known physiological condition Status: Acute Assessment and Plan: Stable, responding well to redirection (3) Chronic GERD: Code(s): K21.9 - Gastro-esophageal reflux disease without esophagitis Status: Acute Assessment and Plan: PPI (4) Dementia, unspecified, without behavioral disturbance: Code(s): F03.90 - Unspecified dementia without behavioral disturbance Status: Inactive Assessment and Plan: Continue memantine Continue rivastigmine (5) Diastolic dysfunction: Code(s): I51.89 - Other ill-defined heart diseases Status: Inactive Assessment and Plan: Appears to be compensated (6) Hyperlipidemia: Code(s): E78.5 - Hyperlipidemia, unspecified Status: Inactive Assessment and Plan: Continue statin Follow-up in the outpatient setting (7) Sensorineural hearing loss (SNHL), bilateral: Code(s): H90.3 - Sensorineural hearing loss, bilateral Status: Acute Assessment and Plan: Unchanged (8) Leukocytosis: Code(s): D72.829 - Elevated white blood cell count, unspecified Status: Acute Assessment and Plan: No fever, no chills, no signs of infection Monitor now Likely reactive (9) Abnormal cytological findings in female genital organs: Code(s): R87.69 - Abnormal cytological findings in specimens from other female genital organs Status: Acute Assessment and Plan: E coli noted on vaginal culture Repeat cultures grew slight growth of Pseudomonas. Spoke with infectious disease pharmacist. Agreed that these were likely colonization. No treatment needed. Trend cultures until complete Subjective Date/time seen: 08/26/21 11:45 Interval history: Patient resting comfortably, no complaints. No events noted overnight. She is cooperative and pleasant. Awaiting approval by insurance for discharge plans to rehab. Review of Systems Review of Systems: ROS unobtainable: Yes unobtainable due to mental status Exam Narrative: General: Patient resting comfortably in bed, no acute distress HEENT: Atraumatic, normocephalic, mucous membranes moist CV: Regular rate and rhythm, S1, S2, soft systolic murmur noted Lungs: Clear to auscultation bilaterally, no rales or crackles noted, no wheezes, good air entry Abdomen: Soft, nontender, nondistended Extremities: Normal to inspection, no edema noted Skin: No rashes noted, no lesions or wounds seen Psych: Euthymic, normal affect Objective Data Vital Signs Vital Signs: Vital Signs - 24 hr 08/25/21 13:43 08/25/21 20:45 08/25/21 20:00 Temperature 98.7 F 98.2 F Pulse Rate 70 77 Respiratory Rate 18 20 Blood Pressure 143/54 H 158/62 H Pulse Oximetry 98 98 Oxygen Delivery Room Air 08/26/21 06:30 08/26/21 09:45 Temperature 98.9 F Pulse Rate 79 Respiratory Rate 20 Blood Pressure 150/74 H Pulse Oximetry 98 Oxygen Delivery Room Air Intake/Output Intake/Output: Intake & Output 08/23/21 08/24/21 08/25/21 08/26/21 23:59 23:59 23:59 23:59 Intake Total 4523 384 8088 440 Output Total 400 700 Balance 1230 170 680 440 Meds/Results Medications: Active Medications Generic Name Dose Route Start Last Admin Trade Name Freq PRN Reason Stop Dose Admin Acetaminophen 650 mg 08/22/21 12:30 08/26/21 11:36 Acetaminophen 325 Mg Tablet PO 650 mg Q6HR LÓPEZ Administration Apixaban 2.5 mg 08/20/21 09:00 08/26/21 09:54 Apixaban 2.5 Mg Tablet PO 2.5 mg Q12HR LÓPEZ Administration Aspirin 81 mg 08/19/21 09:00 08/26/21 09:54 Aspirin 81 Mg Enter
[2021-08-26 14:00] VITALS: BP 116/50; PULSE 77; RESP 18; TEMP 37.1; O2SAT 99
[2021-08-26 17:58] VITALS: O2SAT 98
[2021-08-26 20:00] VITALS: PULSE 77; RESP 18; O2SAT 98
[2021-08-26] MEDS: CITALOPRAM HYDROBROMIDE 10 MG TABLET PO (20:04)
[2021-08-26 22:00] VITALS: BP 140/67; PULSE 70; RESP 20; TEMP 36.9; O2SAT 98
[2021-08-27 05:00] VITALS: BP 173/89; PULSE 74; RESP 20; TEMP 36.4; O2SAT 99
[2021-08-27] MEDS: ACETAMINOPHEN 325 MG TABLET 650 MG PO ×2 (05:42→11:37)
[2021-08-27] MEDS: CEPHALEXIN 500 MG CAPSULE PO ×2 (05:42→11:36)
[2021-08-27 07:50] LABS: Hematocrit 28.6 % (37.0-47.0); Hemoglobin 9.2 g/dL (12.0-15.0); Mean Corpuscular HGB Conc 32.2 g/dl (32-36); Mean Corpuscular Hemoglobin 32.3 pg (26-34); Mean Corpuscular Volume 100.4 fl (80-100); Platelet Count Result 379 k/mm3 (150-375); Red Blood Count 2.85 M/mm3 (4.2-5.4); White Blood Count 10.2 K/mm3 (4.5-10.0)
[2021-08-27 08:03] LABS: Alanine Aminotransferase 103 U/L (6-35); Albumin Level 3.1 g/dL (3.5-5.1); Alkaline Phosphatase 75 U/L (38-126); Anion Gap 0 mmol/L (8-16); Aspartate Amino Transferase 103 U/L (14-36); Bilirubin,Total 0.4 mg/dL (0.2-1.3); Blood Urea Nitrogen 14 mg/dL (7-17); Calcium 8.9 mg/dL (8.4-10.2); Carbon Dioxide 30 mmol/L (22-30); Chloride 103 mmol/L (98-107); Estimated CRCL calculation 40 ml/min; Estimated Glomerular Filt Rate > 60; Glucose 108 mg/dL (65-110); Sodium 133 mmol/L (137-145)
[2021-08-27 10:39] LABS: EDCOVIDSCREEN Negative (Negative)
[2021-08-27] MEDS: ROSUVASTATIN 10 MG TABLET PO (11:37)
[2021-08-27] MEDS: ASPIRIN 81 MG ENTERIC TABLET PO (11:37)
[2021-08-27] MEDS: MEMANTINE HCL XR 28 MG CAP PO (11:37)
[2021-08-27] MEDS: RIVASTIGMINE TARTRATE 1.5 MG CAPSULE 3 MG PO (11:37)
[2021-08-27] MEDS: SENNA/DOCUSATE SODIUM TABLET 2 TAB PO (11:37)
[2021-08-27] MEDS: FAMOTIDINE 20 MG TABLET PO (11:37)
[2021-08-27] MEDS: polyethylene glycoL 3350 17 GM POWD.PACK PO (11:38)
[2021-08-27] MEDS: LORATADINE 10 MG TABLET PO (11:38)
[2021-08-27] MEDS: lisinopriL 20 MG TABLET PO (11:38)
[2021-08-27] MEDS: APIXABAN 2.5 MG TABLET PO (11:38)
--- NOTE | 2021-08-31 07:37 | PM.DS ---
DS: Admitting Diagnosis Discharge Date 08/27/21 Admitting Diagnosis Mechanical fall DS: Discharge Diagnosis Discharge Diagnosis (1) Closed fracture of neck of left femur: Code(s): S72.002A - Fracture of unspecified part of neck of left femur, initial encounter for closed fracture Status: Acute Assessment and Plan: Status post surgical repair. Continue PTOT, improving (2) Sundowning: Code(s): F05 - Delirium due to known physiological condition Status: Acute Assessment and Plan: Stable, responding well to redirection (3) Chronic GERD: Code(s): K21.9 - Gastro-esophageal reflux disease without esophagitis Status: Acute Assessment and Plan: PPI (4) Dementia, unspecified, without behavioral disturbance: Code(s): F03.90 - Unspecified dementia without behavioral disturbance Status: Inactive Assessment and Plan: Continue memantine Continue rivastigmine (5) Diastolic dysfunction: Code(s): I51.89 - Other ill-defined heart diseases Status: Inactive Assessment and Plan: Appears to be compensated (6) Hyperlipidemia: Code(s): E78.5 - Hyperlipidemia, unspecified Status: Inactive Assessment and Plan: Continue statin Follow-up in the outpatient setting (7) Sensorineural hearing loss (SNHL), bilateral: Code(s): H90.3 - Sensorineural hearing loss, bilateral Status: Acute Assessment and Plan: Unchanged (8) Leukocytosis: Code(s): D72.829 - Elevated white blood cell count, unspecified Status: Acute Assessment and Plan: No fever, no chills, no signs of infection Monitor now Likely reactive (9) Abnormal cytological findings in female genital organs: Code(s): R87.69 - Abnormal cytological findings in specimens from other female genital organs Status: Acute Assessment and Plan: E coli noted on vaginal culture Repeat cultures grew slight growth of Pseudomonas. Spoke with infectious disease pharmacist. Agreed that these were likely colonization. No treatment needed. Trend cultures until complete DS: Summary Hospital Course Hospital Course: 85-year-old female with past medical history significant for hypertension, diastolic heart failure, GERD, Alzheimer's, dyslipidemia coming in for a memory care unit status post mechanical fall. Patient was noted in the ER to have a left femur fracture and was admitted for orthopedic surgery consultation. Patient also found to have anemia which was suspected to be chronic. Orthopedic surgery discussed multiple options for treating the femoral neck fracture in the family and patient ultimately opted for surgical intervention for quality of life. While inpatient, patient had some delirium episodes that were treated with Haldol as needed. Home medications were continued. She did have diastolic heart failure in her past medical history but appeared to be euvolemic while inpatient. Patient had cemented bipolar hemiarthroplasty done to her left hip on August 19, 2021. EBL noted to be approximately 150 mL. No complications noted intraoperatively. Patient was evaluated by PT/OT postoperatively. She gradually improved in functional capacity. She did develop leukocytosis that was thought to be reactive. There was no clinical evidence of infection noted. Her white blood cell count did normalize. She was however placed on Keflex due to the intraoperative cultures coming back positive for E coli. Repeat cultures showed light growth of Pseudomonas thought to be colonization. SNF was recommended at discharge. Insurance 1st denied that claim, then after an appeal it was reversed and patient was discharged in good condition to a rehab facility with 2 more days of Keflex as well as pain medications per Orthopedic surgery. She will follow-up outpatient with them all activity restrictions noted in the discharge instructions. Time Spent with P
== END 2021-08-27 12:30 | DRG 522 ==
LOC: ANHED 21:42 → ANH2MED 22:06
PROVIDERS: Chiropractor; Orthopaedic Surgery; Physician Assistant Surgical; Admitting Provider Internal Medicine; Emergency Provider Emergency Medicine; PCP Family Medicine; Visit Provider Student in an Organized Health Care Education/Training Program
PROC: 0SRS0J9 Replacement of Left Hip Joint, Femoral Surface with Synthetic Substitute, Cemented, Open Approach (ICD-10-PCS; CPT 27125; principal; 2021-08-19 17:30)
DX: S72.002A Fracture of unspecified part of neck of left femur, initial encounter for closed fracture (principal); F05 Delirium due to known physiological condition; I50.30 Unspecified diastolic (congestive) heart failure; K21.9 Gastro-esophageal reflux disease without esophagitis; Z20.822 Contact with and (suspected) exposure to COVID-19; E78.5 Hyperlipidemia, unspecified; H90.3 Sensorineural hearing loss, bilateral; Z80.0 Family history of malignant neoplasm of digestive organs; G30.9 Alzheimer's disease, unspecified; D64.9 Anemia, unspecified; F02.80 Dementia in other diseases classified elsewhere, unspecified severity, without behavioral disturbance, psychotic disturbance, mood disturbance, and anxiety; W19.XXXA Unspecified fall, initial encounter; D72.829 Elevated white blood cell count, unspecified; I11.0 Hypertensive heart disease with heart failure; Z79.899 Other long term (current) drug therapy; Z79.82 Long term (current) use of aspirin
CPT/HCPCS: 36415; 70450; 71045; 72125; 73502; 73610; 74018; 80048; 80053; 82306; 83605; 84145; 85025; 85027; 85610; 85730; 86850; 86900; 86901; 87070; 87075; 87077; 87102; 87147; 87181; 87186; 87205; 87206; 87426; 88307; 88311; 93005; 94640; 97110; 97162; 97166; 97530; 97535; 99285; A9270; C1713; C9803; J0131; J0171; J0330; J0690; J1170; J1630; J2405; J2704; J2795; J3010; J3370; J7030; J7120

== ENCOUNTER 2022-05-01 20:04 | Emergency (ER) | payer MEDICARE, SELFPAY ==
--- NOTE | ~2022-05-01 | CT_ITS ---
Noncontrast CT scan of the cervical spine Technique: Multiple contiguous axial [address] images of the cervical spine were obtained and rec onstructed in 2D sagittal and coronal planes on the acquisition scanner. Dose reduction technique was used on this scan by utilizing automated exposure control, adjustment of the mA and/or kV according to patient size. Clinical History: Pain COMPARISON: 08/18/2021 Findings: No fractures or dislocations. Osseous alignment is unchanged from prior exam. Stable degen erative disc narrowing at C4-C5, C5-C6, and C6-C7, with uncovertebral degenerative changes at these l evels. There are scattered mild facet joint degenerative changes in the cervical spine. There are dis c osteophyte complexes at C3-C4, C4-C5, C5-C6, and C6-C7. Probable at least mild canal stenosis at th delvin levels, with associated mild cord compression at these levels. There is also advanced degenerativ e change of the articulation of the odontoid process with the anterior arch of C1. No prevertebral so ft tissue swelling. Impression: No fracture or subluxation of the cervical spine. Degenerative spondylosis, as detailed above, similar to prior exam. Follow-up MR could be considered to better evaluate for discogenic disease, as indicated. Reviewed, dictated and finalized at location M. PROCESSING SPECIALIST Impression: No fracture or subluxation of the cervical spine. Degenerative spondylosis, as detailed above, similar to prior exam. Follow-up M R could be considered to better evaluate for discogenic disease, as indicated.
--- NOTE | ~2022-05-01 | CT_ITS ---
CT head without contrast Indication: Head trauma, anticoagulated COMPARISON: 08/18/2021 Technique: Serial scans were obtained through the brain without the administration of contrast. Dose reduction technique was used on this scan by utilizing automated exposure control and iterative recon struction technique. The dose-length product (DLP) was 605.33 mGy-cm. Findings: There is no evidence of intracranial hemorrhage, mass lesion, or acute infarct. The ventri cles and subarachnoid spaces are dilated, consistent with mild atrophy. Low attenuation regions are seen within the periventricular white matter bilaterally, likely representing changes from chronic mi crovascular ischemic disease. There is no evidence of edema, mass effect or midline shift. The visu alized paranasal sinuses and mastoid air cells are clear. Soft tissue/hematoma noted in the forehead scalp. Impression: No intracranial hemorrhage, mass, or acute infarct. Atrophy and chronic white matter changes, as above. Scalp hematoma/soft tissue swelling, as detailed above. Reviewed, dictated and finalized at location . M STITCHER Impression: No intracranial hemorrhage, mass, or acute infarct. Atrophy and chronic white matter changes, as above. Scalp hematoma/soft tissue swelling, as detailed above.
[2022-05-01 20:05] VITALS: BP 128/68; PULSE 67; RESP 18; TEMP 37.7; O2SAT 97
--- NOTE | 2022-05-01 20:25 | PC.NURSE ---
Family arrives at bedside.
[2022-05-01 22:57] VITALS: PULSE 62; RESP 17; O2SAT 96
--- NOTE | 2022-05-01 23:22 | ED.GENADULT ---
HPI - General Adult General Chief complaint: Fall Stated complaint: fall Time Seen by Provider: 05/01/22 21:17 History of Present Illness HPI narrative: Patient 86-year-old female who presents the emergency department with chief complaint of head injury. Patient is a resident of a local nursing facility and has history of dementia and was sitting in a wheelchair and was leaning forward and tipped out of her wheelchair. Patient struck her head on the ground had no loss of consciousness but they report there is a contusion to the forehead and a small scrape. Patient is on anticoagulant as she has had a recent hip surgery. Patient has no complaints at this time Related Data Home Medications Medication Instructions Recorded Confirmed acetaminophen 500 mg tablet 1,000 mg PO Q6H PRN Pain (Scale 08/18/21 08/18/21 Score 1-3) rivastigmine tartrate 3 mg capsule 3 mg PO BID 08/18/21 08/18/21 Allergies Allergy/AdvReac Type Severity Reaction Status Date / Time morphine AdvReac Unknown agressive Verified 08/19/21 15:36 Review of Systems Review of Systems: A 10 system review of systems was completed on the patient and is negative except for what is stated in the HPI. Nursing and ancillary documentation was reviewed. [facility] Past Medical History Medical History Dementia, unspecified, without behavioral disturbance Diastolic dysfunction Essential hypertension Hyperlipidemia Family History Family History Father Family history of lung cancer Sibling Hypertension Family history of malignant melanoma Mother Family history of malignant neoplasm of stomach Social History Social History Smoking status: Never smoker Second hand tobacco smoke exposure: No Alcohol intake: never Substance use: never Substance use type: does not use Living arrangements: assisted living Additional living arrangements comments: [facility] Occupation/Education: retired Gender identity (if verbalized by the patient): Female Sexual Orientation (if Verbalized by the Patient): Straight or Heterosexual Spiritual care concerns: No Exam Narrative: GENERAL: Well-appearing, well-nourished, and in no acute distress. HEAD: Normocephalic, contusion present to the forehead with small abrasion. EYES: PERRLA and EOMI. ENT: Nares clear, no rhinorrhea or epistaxis. Mucous membranes moist. NECK: Supple. CHEST: Clear to auscultation. No respiratory distress. HEART: Regular rate and rhythm. No murmur heard. Normal peripheral pulses. ABDOMEN: Soft, nontender, nondistended, normal active bowel sounds. EXTREMITIES: Normal range of motion. No edema. SKIN: Warm, dry, no rash. NEURO: No focal deficits. Alert, confused at baseline. PSYCH: Normal mood and affect. Course Vital Signs Vital signs: Vital Signs Temperature 37.7 C H 05/01/22 20:05 Pulse Rate 67 05/01/22 20:05 Respiratory Rate 18 05/01/22 20:05 Blood Pressure 128/68 05/01/22 20:05 Pulse Oximetry 97 05/01/22 20:05 Oxygen Delivery Room Air 05/01/22 20:05 Temperature 37.7 C H 05/01/22 20:05 Pulse Rate 62 05/01/22 22:57 Respiratory Rate 17 05/01/22 22:57 Blood Pressure 128/68 05/01/22 20:05 Pulse Oximetry 96 05/01/22 22:57 Oxygen Delivery Room Air 05/01/22 20:05 Medical Decision Making MDM Narrative Medical decision making narrative: Differential diagnosis includes head contusion, forehead contusion, subdural subarachnoid epidural Helical imaging of the head and C-spine showed no evidence of acute abnormality. the abrasion did not require any suturing Patient is currently at her baseline Vital Signs Vital Signs: Vital Signs Temperature 37.7 C H 05/01/22 20:05 Pulse Rate 67 05/01/22 20:05 Respiratory Rate 18 05/01/22 20
[2022-05-02 00:29] VITALS: PULSE 61; RESP 17; O2SAT 96
[2022-05-02 02:37] VITALS: PULSE 57; RESP 14; O2SAT 93
--- NOTE | 2022-05-02 02:37 | PC.NURSE ---
Patients family member leaves the bedside.
[2022-05-02 04:16] VITALS: BP 154/65; PULSE 59; RESP 16; O2SAT 96
== END 2022-05-02 04:19 ==
PROVIDERS: Emergency Provider Emergency Medicine; PCP Family Medicine
DX: S00.83XA Contusion of other part of head, initial encounter (principal); F03.90 Unspecified dementia, unspecified severity, without behavioral disturbance, psychotic disturbance, mood disturbance, and anxiety; I10 Essential (primary) hypertension; E78.5 Hyperlipidemia, unspecified; Z79.82 Long term (current) use of aspirin; Z79.01 Long term (current) use of anticoagulants; W05.0XXA Fall from non-moving wheelchair, initial encounter
CPT/HCPCS: 70450; 72125; 99284